=== PATIENT | female | born 1965 | race Caucasian/White ===

== ENCOUNTER → 2017-04-28 | Outpatient (CLI) | payer OTHER ==
[~2017-04-28] MED LIST: CPR250T PO; CYCL10TA9 PO; NAPR-243 PO
--- NOTE | 2017-04-28 12:29 | Diagnostic Imaging Report ---
INDICATION: Digital mammogram bilateral screening. This study was compared to the prior exams of 09/06/15 and 06/08/12. At this time, there are no current complaints. The current study was also evaluated with a Computer Aided Detection (CAD) system. FINDINGS: The fibroglandular tissue in both breasts is heterogeneously dense. This does limit the sensitivity of this exam. Overall, there does not appear to have been any significant change when compared to the prior study. No primary or secondary sign of malignancy is noted. IMPRESSION: There is no radiographic evidence for malignancy. ACR BI-RADS Category 1: Negative. Result letter will be mailed to the patient. Note: At least 10% of breast cancer is not imaged by mammography. Dictated by: Dictated on workstation # [id number]
== END ==
LOC: RAD 07:16
PROVIDERS: ATTEND Internal Medicine
DX: Z12.31 Encounter for screening mammogram for malignant neoplasm of breast (principal)
CPT/HCPCS: 77067

== ENCOUNTER 2017-09-22 09:19 | Emergency (ER) | payer OTHER ==
[~2017-09-22] VITALS: Ht 167.6 cm; Wt 99.8 kg
--- OUTSIDE RECORDS SUMMARY | 2017-09-22 09:25 | XMS REPORT | Clinical Summary ---
Author Author User, [employer] Lindsay Robison DO, LUCRETIAP Address Unknown Phone Allergies, Adverse Reactions, Alerts Allergy Name Reaction Description Start Date Severity Status Provider No Known Allergies Greta Main Conditions or Problems Problem Name Problem Code Onset Date Status Entry Date Provider Comment Standard Description Annotate UTI 599.0 Resolved Lindsay Robison Urinary tract infection, site not specified HEALTH SCREENING V70.0 Resolved Lindsay Robison Routine general medical examination at a health care facility SPLENECTOMY, TOTAL, HX OF V45.79 Resolved Lindsay Robison Other acquired absence of organ MAMMOGRAM, ABNORMAL, RIGHT 793.80 Resolved Lindsay Robison Abnormal mammogram, unspecified VACCINE AGAINST STREPTOCOCCUS PNEUMONIAE V03.82 Resolved Lindsay Robison Need for prophylactic vaccination against Streptococcus pneumoniae [pneumococcus] WELL WOMAN V70.0 Active Lindsay Robison Routine general medical examination at a health care facility DEHYDRATION 276.51 Resolved Lindsay Robison Dehydration INFLUENZA WITH OTHER MANIFESTATIONS 487.8 Resolved Lindsay Robison Influenza with other manifestations OTHER ELEVATED WHITE BLOOD CELL COUNT 288.69 Resolved Lindsay Robison Other elevated white blood cell count Medication List Medication Instructions Start Date Stop Date Generic Name NDC Status Provider Patient Instruction BACTRIM DS 800-160 MG TABS 1 po daily x 5 days SULFAMETHOXAZOLE-TRIMETHOPRIM [id number] No Longer Active Lindsay Robison Immunizations Vaccine Administration Date Value Standard Description pneumococcal immunization administered 1st dose Dr. Robison pneumococcal polysaccharide vaccine, 23 valent Vital Signs Date Name Value Unit Range Description blood pressure, diastolic - 8462-4 70 mm[Hg] BP lopez blood pressure, systolic - 8480-6 118 mm[Hg] BP sys pulse rate E&M - 8867-4 68 /min Heart rate respiratory rate E&M - 9279-1 14 /min Resp rate temperature E&M 98.6 [degF] Body temperature weight E&M - 3141-9 180 [lb_av] Weight Measured Diagnostic Results Date Name Value Unit Range Description Office Visit: Dr Robison'mark Check Up: Established Patient Visit - Chemistry glucose, plasma fasting 79 mg/dL triglyceride, serum, fasting 54 mg/dL cholesterol, serum 158 mg/dL hemoglobin A1C, blood, as % of total hemoglobin 4.1 % HDL cholesterol, serum 59 mg/dL LDL cholesterol, serum 88 mg/dL Encounters Code Encounter Date Provider Facility CPT-24396 Ofc Vst, Est Level III 14:30:37 EARLY CHILDHOOD ASSISTANT Lindsay Robison DO, FACP CPT-41677 Ofc Vst, Est Level III 20:03:25 EARLY CHILDHOOD ASSISTANT Lindsay Robison DO, FACP CPT-20501 Ofc Vst, Est Level IV 15:45:18 EARLY CHILDHOOD ASSISTANT Lindsay Robison [facility] CPT-78287 Ofc Vst, New Level III 15:22:14 EARLY CHILDHOOD ASSISTANT Lindsay Robison DO, FACP Procedures Code Procedure Name Date Entry Date Standard Description CPT-07399 Preventive, Est, (40-64) 17:03:39 CDT CPT-95365 Administration of 1st dose vaccine 10:25:53 EARLY CHILDHOOD ASSISTANT CPT-03592 Injection, Pneumovax 10:25:53 EARLY CHILDHOOD ASSISTANT CPT-71039 Preventive, Est, (40-64) 10:25:53 EARLY CHILDHOOD ASSISTANT CPT-72212 Handling of specimen from office to lab 10:25:53 EARLY CHILDHOOD ASSISTANT
--- OUTSIDE RECORDS SUMMARY | 2017-09-22 09:25 | XMS REPORT | Continuity of Care Document ---
Author Author [facility] Organization [facility] Address Unknown Phone Unavailable Allergies Active Description Code Type Severity Reaction Onset Reported/Identified Relationship to Patient Clinical Status Yes No Known Drug Allergies [id number] Drug Allergy Unknown N/A 05/18/2012 Medications There is no data. Problems Date Dx Coded Attending Type Code Diagnosis Diagnosed By 10/31/2010 Ot 599.0 URIN TRACT INFECTION NOS 10/31/2010 Ot 724.2 LUMBAGO 10/31/2010 Ot 780.79 OTH MALAISE FATIGUE 11/02/2010 Ot 041.11 METHICILLIN SUSCEPTIBLE STAPHYLOCOCCUS A 11/02/2010 Ot 599.0 URIN TRACT INFECTION NOS 11/02/2010 Ot 724.2 LUMBAGO 05/20/2012 Ot 038.9 SEPTICEMIA NOS 05/20/2012 Ot 079.99 VIRAL INFECTION NOS 05/20/2012 Ot 276.51 DEHYDRATION 05/20/2012 Ot 599.0 URIN TRACT INFECTION NOS 05/20/2012 Ot 785.6 ENLARGEMENT LYMPH NODES 05/20/2012 Ot 995.91 SEPSIS 09/06/2015 Ot 611.72 LUMP OR MASS IN BREAST 09/06/2015 Ot V76.12 OTH SCREEN MAMMO-MALIGN NEOPLASM OF MANAV 09/06/2015 Ot 793.80 UNSPEC ABNORMAL MAMMOGRAM 09/06/2015 Ot V76.12 OTH SCREEN MAMMO-MALIGN NEOPLASM OF MANAV 09/07/2015 TRA ALLEN DO Ot Z12.31 ENCNTR SCREEN MAMMOGRAM FOR MALIGNANT NE 04/28/2017 Ot V76.12 OTH SCREEN MAMMO-MALIGN NEOPLASM OF MANAV 04/28/2017 TRA ALLEN DO Ot Z12.31 ENCNTR SCREEN MAMMOGRAM FOR MALIGNANT NE Procedures There is no data. Results There is no data. Encounters ACCT No. Visit Date/Time Discharge Status Pt. Type Provider Facility Loc./Unit Complaint [id number] 04/28/2017 07:16:00 04/28/2017 23:59:59 CLS Outpatient ALLEN DO, TRA [facility] RAD Z12.31 SCREENING [id number] 11/21/2016 07:42:00 11/21/2016 23:59:59 CLS Preadmit ALLEN DO, TRA [facility] RAD Z12.31 [id number] 09/06/2015 09:32:00 09/06/2015 23:59:59 CLS Outpatient ALLEN DO, TRA [facility] RAD SCREENING [id number] 06/08/2012 09:48:00 Document Registration [id number] 05/18/2012 15:47:00 Document Registration [id number] 11/02/2010 18:58:00 Document Registration [id number] 10/31/2010 15:31:00 Document Registration [id number] 05/13/2010 14:18:00 Document Registration [id number] 05/02/2010 08:20:00 Document Registration
[2017-09-22] MEDS ORDERED: LEVO75TA PO (09:41)
[2017-09-22 09:47] LABS: BILIRUBIN,URINE NEGATIVE (NEGATIVE); CLARITY,URINE SLIGHTLY CLOUDY; COLOR,URINE AMBER; GLUCOSE, URINE (UA) NEGATIVE (NEGATIVE); KETONES,URINE NEGATIVE (NEGATIVE); LEUKOCYTE ESTERASE ,URINE 2+ (NEGATIVE); NITRITE,URINE NEGATIVE (NEGATIVE); PH,URINE 5 (5-9); PROTEIN,URINE 2+ (NEGATIVE); UROBILINOGEN,URINE 1 MG/DL (NORMAL)
[2017-09-22 09:54] LABS: BACTERIA,URINE MODERATE /HPF; RBC,URINE RARE /HPF
[2017-09-22] MEDS ORDERED: CEPH-507 PO (10:08)
--- NOTE | 2017-09-22 10:08 | ED General ---
General Chief Complaint: -Female Stated Complaint: BACK PAIN,NO PAINFUL URINATION Nursing Triage Note: PT AMBULATES TO ROOM 6 PT STATES HAS LOW BACK PAIN, PT STATES USUALLY WHEN HAS THIS IS UTI, PT STATES JUST DOES NOT FEEL WELL. STATES HAS NOT BEEN DRINKING WELL PAST FEW DAYS Nursing Sepsis Screen: No Definite Risk (MC CROWDER MD) Source of Information: Patient Exam Limitations: No Limitations (VERN TORRES) History of Present Illness Date Seen by Provider: Sep 22, 2017 Time Seen by Provider: 09:55 Initial Comments This is a 52 y/o female presenting to the ED via private vehicle. Chief complaint is low back pain that began on 09/18/17. Patient reports that her pain started with intermittent pains, but now reports it as a constant ache. She denies any radiation. Current pain is 6/10, with max pain felt 10/10 on Thursday. Patient states that she has not taken any medications for the pain, warm bathes/showers seem to ease the pain temporarily. Patient has a history of multiple UTIs, denies history of kidney stones, back problems. She states that she usually has back pain with urinary track infections. Admits to chills, loss of appetite; Denies fever nausea, vomiting, diarrhea, abdominal pain, frequency , urgency, burning with urination, odor to urine, blood in urine. Denies in medication allergies. Patient reports taking Synthroid, for hypothyroidism. Patient reports her LMP was 3 years ago. (VERN TORRES) Allergies and Home Medications Allergies Coded Allergies: No Known Drug Allergies (Unverified , 05/18/12) Home Medications Cephalexin 500 Mg Capsule, 500 MG PO QID Prescribed by: MC BARRETT on 09/22/17 1008 Patient Home Medication List Home Medication List Reviewed: Yes (VERN TORRES) Review of Systems Constitutional: see HPI, chills; No fever EENTM: no symptoms reported Respiratory: no symptoms reported Cardiovascular: no symptoms reported Gastrointestinal: see HPI; No abdominal pain, No diarrhea; loss of appetite; No nausea, No vomiting Genitourinary: see HPI : No Musculoskeletal: back pain Skin: no symptoms reported (VERN TORRES) Past Nbkhayk-Udxqzp-Svxbfi Hx Patient Social History Alcohol Use: Denies Use Recreational Drug Use: No Smoking Status: Never a Smoker Recent Foreign Travel: No Contact w/Someone Who Travel: No Recent Infectious Disease Expo: No Recent Hopitalizations: No Physical Abuse: No Sexual Abuse: No (MC CROWDER MD) Immunizations Up To Date Tetanus Booster (TDap): Unknown Date of Influenza Vaccine: Feb 12, 2012 (MC CROWDER MD) Past Medical History Surgeries: Yes (SPLEENECTOMY-AGE 1) Gallbladder Respiratory: No Cardiac: No Reproductive Disorders: No 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 Gastrointestinal: No Musculoskeletal: No Endocrine: Yes Hypothyroidsim Cancer: No Psychosocial: No Nursing Suicide Risk Score: 0 Integumentary: No Blood Disorders: No Adverse Reaction/Blood Tranf: No (MC CROWDER MD) Physical Exam Vital Signs Vital Signs - First Documented 09/22/17 09:20 Temp 96.9 Pulse 101 Resp 16 B/P (MAP) 130/82 (98) Pulse Ox 98 (VERN TORRES MED STUDENT) Vital Signs Capillary Refill : Less Than 3 Seconds (MC CROWDER MD) General Appearance: No Apparent Distress, WD/WN Eyes: Bilateral Eye Normal Inspection, Bilateral Eye EOMI Respiratory: Chest Non Tender, Lungs Clear, Normal Breath Sounds, No Accessory Muscle Use, No Respiratory Distress Cardiovascular: Regular Rate, Rhythm, No Edema, No Gallop, No JVD, No Murmur Gastrointestinal: Normal Bowel Sounds, No Organomegaly, No Pulsatile Mass, Non Tender (Non tender to abdomen including suprapubic area ), Soft Back: Normal Inspection, No CVA Tenderness, No Vertebral Tenderness Neurologic/Psychiatric: Alert, Oriented x3, No Motor/Sensory Deficits, Normal Mood/Affect Skin: Normal Color, Warm/Dry (VERN TORRES MED STUDENT) Progress/Results/Core Measures Suspected Sepsis Recent Fever Within 48 Hours: No Infection Criteria Present: None New/Unexplained Altered Menta: No Sepsis Screen: No Definite Risk SIRS Temperature:96.9 Pulse: 101 Respiratory Rate: 16 Blood Pressure 130 /82 Mean: 98 (MC CROWDER MD) Results/Orders Lab Results Laboratory Tests Test 09/22/17 09:25 Range/Units Urine Color GORAN H Urine Clarity SLIGHTLY CLOUDY Urine pH 5 5-9 Urine Specific [place] 1.015 L 1.016-1.022 Urine Protein 2+ H NEGATIVE Urine Glucose (UA) NEGATIVE NEGATIVE Urine Ketones NEGATIVE NEGATIVE Urine Nitrite NEGATIVE NEGATIVE Urine Bilirubin NEGATIVE NEGATIVE Urine Urobilinogen 1 NORMAL MG/DL Urine Leukocyte Esterase 2+ H NEGATIVE Urine RBC (Auto) 2+ H NEGATIVE Urine RBC RARE /HPF Urine WBC 5-10 H /HPF Urine Squamous Epithelial Cells 10-25 H /HPF Urine Crystals NONE /LPF Urine Bacteria MODERATE H /HPF Urine Casts NONE /LPF Urine Mucus SMALL H /LPF Urine Culture Indicated YES (VERN TORRES) Vital Signs/I&O 09/22/17 09:20 Temp 96.9 Pulse 101 Resp 16 B/P (MAP) 130/82 (98) Pulse Ox 98 (VERN TORRES) Vital Signs/I&O Capillary Refill : Less Than 3 Seconds (MC CROWDER MD) Blood Pressure Mean: 98 Progress Note : Progress Note I have personally interviewed, seen, and examined this patient along with Vern Torres, QUINTIN Student. I have reviewed her documentation and agree with her history, exam, assessment, and plan with the following additions. Patient states history of prior urinary tract infection with similar symptoms. UA was suggestive of urinary tract infection and patient was started on antibiotic therapy. See discharge instructions. Exam: Gen.: Alert, oriented, no acute distress, well-developed HEENT: Normocephalic and atraumatic, mucous membranes moist Heart: Regular rate and rhythm without murmur Lungs: Clear to auscultation bilaterally with normal effort Abdomen: Soft, nontender Back: No point tenderness (MC CROWDER MD) Progress Note : Time: 10:10 Progress Note Patient seen and examined, UA shows moderate UTI. Plan to discharge with Keflex and PRN use of ibuprofen and Tylenol for pain control. (VERN TORRES) Departure Impression Primary Impression: Urinary tract infection Qualified Codes: N39.0 - Urinary tract infection, site not specified Additional Impression: Lower back pain Qualified Codes: M54.5 - Low back pain Disposition: 01 HOME, SELF-CARE Condition: Stable Departure-Patient Inst. Decision time for Depature: 10:05 (MC CROWDER MD) Referrals: ALLEN,TRA DO (PCP/Family) Primary Care Physician Patient Instructions: Urinary Tract Infection, Adult (DC) Add. Discharge Instructions: Drink plenty of clear liquids. You should hydrate well enough that your urine is a clear to light yellow color. Complete your antibiotics as prescribed. Follow-up with your primary care provider by phone or in person on or Thursday to review urine culture results. Return to care if symptoms are worsening. For pain you may take ibuprofen up to 600 mg every 6 hours as needed and/or Tylenol (acetaminophen) up to 1000 mg every 6 hours as needed. All discharge instructions reviewed with patient and/or family. Voiced understanding. Scripts Cephalexin (Keflex) 500 Mg Capsule 500 MG PO QID, #28 CAP Prov: MC CROWDER MD 09/22/17 MC CROWDER MD Sep 22, 2017 10:08 VERN TORRES MED STUDENT Sep 22, 2017 10:18
[2017-09-22 10:15] VITALS: BP 130/82
== END 2017-09-22 10:15 | disposition home or self-care (01) ==
LOC: EDUNIT# 09:19 → ER 09:21
DX: N39.0 Urinary tract infection, site not specified (principal); E03.9 Hypothyroidism, unspecified; Z98.890 Other specified postprocedural states
CPT/HCPCS: 81000; 87088; 99282

== ENCOUNTER → 2017-09-29 | Outpatient (CLI) | payer OTHER ==
[~2017-09-29] MED LIST changes: +CEPH-507 PO; +LEVO75TA PO
--- NOTE | 2017-09-29 16:17 | Diagnostic Imaging Report ---
INDICATION: Low back pain. Three views were obtained. FINDINGS: Alignment, vertebral body heights and disc spaces are within normal limits. There is no spondylolysis or spondylolisthesis. There is no acute fracture or traumatic subluxation. IMPRESSION: No acute radiographic abnormality. Dictated by: Dictated on workstation # [id number]
== END ==
LOC: RAD 15:02
PROVIDERS: ATTEND Internal Medicine
DX: M54.5 Low back pain (principal)
CPT/HCPCS: 72100

== ENCOUNTER 2017-10-08 09:54 | Inpatient (IN) | payer OTHER ==
[~2017-10-08] VITALS: Ht 167.6 cm; Wt 102.7 kg
[2017-10-08] MEDS ORDERED: fentaNYL INJECTION 100 MCG/2 ML AMP IVP STA (11:34)
[2017-10-08] MEDS ORDERED: NS IV 1000 ML 1,000 ML IV STA (11:34)
--- NOTE | 2017-10-08 11:36 | ED Back Pain ---
General Stated Complaint: BACK AND ABD PAIN Source of Information: Patient Exam Limitations: No Limitations History of Present Illness Date Seen by Provider: Oct 08, 2017 Time Seen by Provider: 11:28 Initial Comments Here with back and abdominal pain is been going on for a few days. Seen by her primary care provider for this and had thoracic x-rays done. This did not show significant findings but may have had some abnormality around T8 or T9. Pain is progressed and is intolerable currently. She has nausea and vomiting with this and is unable to keep her medicines down. Denies fever but does have elevated white count. Location: T-Spine Timing/Duration: 3-4 Days Severity: Moderate Pain/Injury Location: Abdomen, Back Modifying Factors: Worse With Movement; Improves With Pain Medication Associated Symptoms: No fever, No weakness, No numbness in legs/feet, No lower back pain, No loss of bladder control, No loss of bowel control Allergies and Home Medications Allergies Coded Allergies: No Known Drug Allergies (Unverified , 05/18/12) Home Medications Cephalexin 500 Mg Capsule, 500 MG PO QID Prescribed by: MC BARRETT on 09/22/17 1008 Patient Home Medication List Home Medication List Reviewed: Yes Constitutional: see HPI; No chills, No fever EENTM: no symptoms reported Respiratory: no symptoms reported Cardiovascular: No chest pain, No edema Gastrointestinal: abdominal pain (upper and lower abdomen in the midline area. Upper abdomen is across) Genitourinary: No dysuria, No frequency Musculoskeletal: back pain; No muscle pain Skin: no symptoms reported Psychiatric/Neurological: No Symptoms Reported All Other Systems Reviewed Negative Unless Noted: Yes Past Onwmcwv-Qmnhjx-Gzrixh Hx Past Med/Social Hx: Reviewed Nursing Past Med/Soc Hx Patient Social History Alcohol Use: Denies Use Recreational Drug Use: No Smoking Status: Never a Smoker Recent Foreign Travel: No Contact w/Someone Who Travel: No Recent Hopitalizations: No Immunizations Up To Date Tetanus Booster (TDap): Unknown Date of Influenza Vaccine: Feb 12, 2012 Past Medical History Surgeries: Yes (SPLEENECTOMY-AGE 1) Gallbladder Respiratory: No Cardiac: No 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 Gastrointestinal: No Musculoskeletal: No Endocrine: Yes Hypothyroidsim Cancer: No Psychosocial: No Integumentary: No Blood Disorders: No Adverse Reaction/Blood Tranf: No Family Medical History Reviewed Nursing Family Hx No Pertinent Family Hx Physical Exam Vital Signs Vital Signs - First Documented 10/08/17 11:28 Temp 98.8 Pulse 96 Resp 22 B/P (MAP) 152/95 (114) Pulse Ox 100 Capillary Refill : General Appearance: No Apparent Distress, WD/WN HEENT: PERRL/EOMI, Pharynx Normal Neck: Non Tender, Supple Cardiovascular: Regular Rate, Rhythm, No Murmur Respiratory: Lungs Clear, Normal Breath Sounds Gastrointestinal: Soft; No Guarding, No Rebound; Tenderness (bilateral upper quadrants) Back: Normal Inspection, No CVA Tenderness, No Vertebral Tenderness Extremity: Normal Range of Motion, Non Tender Neurologic/Psychiatric: Alert, Oriented x3 Skin: Normal Color, Warm/Dry Progress/Results/Core Measures Results/Orders Lab Results Laboratory Tests Test 10/08/17 11:40 10/08/17 11:45 Range/Units White Blood Count 16.0 H 4.3-11.0 10^3/uL Red Blood Count 4.03 L 4.35-5.85 10^6/uL Hemoglobin 11.6 11.5-16.0 G/DL Hematocrit 33 L 35-52 % Mean Corpuscular Volume 81 80-99 FL Mean Corpuscular Hemoglobin 29 25-34 PG Mean Corpuscular Hemoglobin Concent 35 32-36 G/DL Red Cell Distribution Width 13.1 10.0-14.5 % Platelet Count 1019 *H 130-400 10^3/uL Mean Platelet Volume 9.2 7.4-10.4 FL Neutrophils (%) (Auto) 67 42-75 % Lymphocytes (%) (Auto) 21 12-44 % Monocytes (%) (Auto) 12 0-12 % Eosinophils (%) (Auto) 0 0-10 % Basophils (%) (Auto) 0 0-10 % Neutrophils # (Auto) 10.7 H 1.8-7.8 X 10^3 Lymphocytes # (Auto) 3.3 1.0-4.0 X 10^3 Monocytes # (Auto) 1.9 H 0.0-1.0 X 10^3 Eosinophils # (Auto) 0.1 0.0-0.3 10^3/uL Basophils # (Auto) 0.0 0.0-0.1 10^3/uL Neutrophils % (Manual) 69 % Lymphocytes % (Manual) 17 % Monocytes % (Manual) 14 % Eosinophils % (Manual) 0 % Basophils % (Manual) 0 % Band Neutrophils 0 % [place] Bodies SLIGHT Erythrocyte Sedimentation Rate 37 H 0-30 MM/HR Prothrombin Time 14.0 12.2-14.7 SEC INR Comment 1.1 0.8-1.4 Activated Partial Thromboplast Time 34 24-35 SEC Sodium Level 138 135-145 MMOL/L Potassium Level 3.7 3.6-5.0 MMOL/L Chloride Level 102 98-107 MMOL/L Carbon Dioxide Level 25 21-32 MMOL/L Anion Gap 11 5-14 MMOL/L Blood Urea Nitrogen 10 7-18 MG/DL Creatinine 0.66 0.60-1.30 MG/DL Estimat Glomerular Filtration Rate > 60 BUN/Creatinine Ratio 15 Glucose Level 78 70-105 MG/DL Lactic Acid Level 0.94 0.50-2.00 MMOL/L Calcium Level 9.7 8.5-10.1 MG/DL Total Bilirubin 1.3 H 0.1-1.0 MG/DL Aspartate Amino Transf (AST/SGOT) 28 5-34 U/L Alanine Aminotransferase (ALT/SGPT) 29 0-55 U/L Alkaline Phosphatase 89 40-136 U/L C-Reactive Protein High Sensitivity 3.97 H 0.00-0.50 MG/DL Total Protein 7.6 6.4-8.2 GM/DL Albumin 4.0 3.2-4.5 GM/DL Urine Color YELLOW Urine Clarity CLEAR Urine pH 8 5-9 Urine Specific [place] 1.010 L 1.016-1.022 Urine Protein NEGATIVE NEGATIVE Urine Glucose (UA) NEGATIVE NEGATIVE Urine Ketones 2+ H NEGATIVE Urine Nitrite NEGATIVE NEGATIVE Urine Bilirubin NEGATIVE NEGATIVE Urine Urobilinogen NORMAL NORMAL MG/DL Urine Leukocyte Esterase NEGATIVE NEGATIVE Urine RBC (Auto) NEGATIVE NEGATIVE Urine RBC NONE /HPF Urine WBC RARE /HPF Urine Squamous Epithelial Cells RARE /HPF Urine Crystals NONE /LPF Urine Bacteria NEGATIVE /HPF Urine Casts NONE /LPF Urine Mucus NEGATIVE /LPF Urine Culture Indicated NO My Orders Orders - CAMRYN EMERSON MD Cbc With Automated Diff (10/08/17 10:00) Comprehensive Metabolic Panel (10/08/17 10:00) Hs C Reactive Protein (10/08/17 10:00) Erythrocyte Sedimentation Rate (10/08/17 10:00) Saline Lock/Iv-Start (10/08/17 10:00) Mri Thoracic Spine W/Wo Con (10/08/17 10:00) Lactic Acid Analyzer (10/08/17 11:34) Ua Culture If Indicated (10/08/17 11:34) Blood Culture (10/08/17 11:34) Ondansetron Injection (Zofran Injectio (10/08/17 11:45) Ns Iv 1000 Ml (Sodium Chloride 0.9%) (10/08/17 11:34) Saline Lock/Iv-Start (10/08/17 11:34) Fentanyl Injection (Sublimaze Injection (10/08/17 11:34) Manual Differential (10/08/17 11:40) Gadobutrol Inj (Radiology) (Gadavist Inj (10/08/17 12:45) Ct Chest/Abdomen/Pelvis W (10/08/17 12:50) Iohexol Injection (Omnipaque 350 Mg/Ml 1 (10/08/17 13:15) Ns (Ivpb) (Sodium Chloride 0.9%) (10/08/17 13:15) Hydromorphone Injection (Dilaudid Inje (10/08/17 13:26) Saline Lock/Iv-Start (10/08/17 13:26) Ns Iv 1000 Ml (Sodium Chloride 0.9%) (10/08/17 13:26) Hydromorphone Injection (Dilaudid Inje (10/08/17 13:27) Heparin Drip 66776 Unit/500ml (Heparin (10/08/17 14:30) Heparin (Bolus Per Protocol) (Heparin (B (10/08/17 14:30) Protime With Inr (10/08/17 14:30) Partial Thromboplastin Time (10/08/17 14:30) Medications Given in ED Current Medications Medications Dose Ordered Sig/Smooth Route Start Time Stop Time Status Last Admin Dose Admin Gadobutrol 10 mmol ONCE ONCE IV 10/08/17 12:45 10/08/17 12:46 DC 10/08/17 12:37 10 MMOL Iohexol 100 ml ONCE ONCE IV 10/08/17 13:15 10/08/17 13:16 DC 10/08/17 14:01 100 ML Ondansetron HCl 4 mg ONCE ONCE IVP 10/08/17 11:45 10/08/17 11:46 DC 10/08/17 11:40 4 MG Sodium Chloride 250 ml ONCE ONCE IV 10/08/17 13:15 10/08/17 13:16 DC 10/08/17 14:01 80 ML Vital Signs/I&O 10/08/17 11:28 Temp 98.8 Pulse 96 Resp 22 B/P (MAP) 152/95 (114) Pulse Ox 100 Progress Progress Note : Progress Note Seen and evaluated. I did discuss case with Dr. Allen prior to patient's arrival. We will get labs and compared to previous as well as MRI of the thoracic spine due to intractable pain and abnormal findings on thoracic plain film x-ray. Fentanyl 75 g IV. Normal saline 1 L bolus and Zofran 4 mg IV ordered. Monitor patient. MRI complete and noted. No significant findings. We will get CT of chest abdomen pelvis due to concerns related to possible pleural effusion and cancer is a possibility of pain with referred pain. CT chest, abdomen and pelvis ordered. Dilaudid 1 mg IV. Monitor patient. 1430: I rediscussed case with Dr. Alberto and the radiologist after CT results complete. Pain is better. There is abnormalities noted in the liver and portal vein thrombosis is noted with congestion. This may be the cause of pain. Dr. Allen has talked with Dr. Rowley who will consult. She'll admit the patient, inpatient status to the ICU stepdown. Patient to be initiated on heparin protocol. Full dose protocol ordered per her request. Patient agrees to plan. Diagnostic Imaging Diagonstic Imaging: MRI Plain Films/CT/US/NM/MRI: other Comments VIA [facility]. [place], [place] NAME: JULIA [facility]A [facility] REC#: [id number] PT STATUS: REG ER : 1965 PHYSICIAN: CAMRYN EMERSON MD ADMIT DATE: 10/08/17/ER Draft Date of Exam:10/08/17 MRI THORACIC SPINE W/WO CON INDICATION: Back pain for three weeks, progressively getting worse. COMPARISON: No prior MRI studies are available for comparison. FINDINGS: Curvature and alignment of the thoracic spine is normal. The vertebral body heights are maintained. No acute compression fracture is seen. No geographic marrow lesion is seen. There is some mild mid thoracic degenerative disc disease with mild disc space narrowing and desiccation noted. A very small right para midline disc bulge is noted at the T10-T11 level but no resultant central canal or neuroforaminal stenosis is seen. Thoracic spinal cord demonstrates normal homogeneous signal intensity and normal morphology. Postcontrast images are without evidence of abnormal enhancement. Specifically, there are no findings to suggest discitis or vertebral osteomyelitis. No paravertebral fluid collection or abscess is seen. No abnormal enhancement within the spinal canal is detected. Note is made of a trace right pleural effusion. IMPRESSION: 1. Essentially unremarkable pre-and postcontrast MRI of the thoracic spine with the exception of mild mid and lower thoracic degenerative disc disease. No central canal or neuroforaminal stenosis is seen. No acute compression fracture or evidence of discitis/vertebral osteomyelitis are seen. 2. Trace right pleural effusion. Dictated on workstation # [id number] Dict: 10/08/17 1243 Trans: 10/08/17 1302 [facility] [id number] Interpreted by: ANNE DOUGLASS MD Electronically signed by: Reviewed: Discussed w/Radiologist Diagonstic Imaging: Xray, CT Plain Films/CT/US/NM/MRI: chest, abdomen, pelvis Reviewed: Discussed w/Radiologist Departure Impression Primary Impression: Portal vein thrombosis Additional Impression: Intractable abdominal pain Disposition: ADMITTED INPATIENT Condition: Stable Admissions Decision to Admit Reason: Admit from ER (General) Decision to Admit/Date: Oct 08, 2017 Time/Decision to Admit Time: 15:03 Departure-Patient Inst. Referrals: TRA ALLEN DO (PCP/Family) Primary Care Physician CAMRYN EMERSON MD Oct 08, 2017 11:36
[2017-10-08] MEDS ORDERED: ONDANSETRON 4 MG/2 ML (SDV) Z0FRAN IVP ONE (11:45)
[2017-10-08 12:01] LABS: BASOPHILS % (AUTO) 0 % (0-10); EOSINOPHILS # (AUTO) 0.1 10^3/uL (0.0-0.3); EOSINOPHILS % (AUTO) 0 % (0-10); HEMATOCRIT 33 % (35-52); HEMOGLOBIN 11.6 G/DL (11.5-16.0); LYMPHOCYTES # (AUTO) 3.3 X 10^3 (1.0-4.0); LYMPHOCYTES % (AUTO) 21 % (12-44); MEAN CORPUSCULAR HEMOGLOBIN 29 PG (25-34); MEAN CORPUSCULAR HGB CONC 35 G/DL (32-36); MEAN CORPUSCULAR VOLUME 81 FL (80-99); MEAN PLATELET VOLUME 9.2 FL (7.4-10.4); MONOCYTES # (AUTO) 1.9 X 10^3 (0.0-1.0); MONOCYTES % (AUTO) 12 % (0-12); NEUTROPHILS # (AUTO) 10.7 X 10^3 (1.8-7.8); NEUTROPHILS % (AUTO) 67 % (42-75); RED BLOOD COUNT 4.03 10^6/uL (4.35-5.85); RED CELL DISTRIBUTION WIDTH 13.1 % (10.0-14.5)
[2017-10-08 12:02] LABS: PLATELET COUNT 1019 10^3/uL (130-400)
[2017-10-08 12:02] LABS: BILIRUBIN,URINE NEGATIVE (NEGATIVE); CLARITY,URINE CLEAR; COLOR,URINE YELLOW; GLUCOSE, URINE (UA) NEGATIVE (NEGATIVE); KETONES,URINE 2+ (NEGATIVE); LEUKOCYTE ESTERASE ,URINE NEGATIVE (NEGATIVE); NITRITE,URINE NEGATIVE (NEGATIVE); PH,URINE 8 (5-9); PROTEIN,URINE NEGATIVE (NEGATIVE); UROBILINOGEN,URINE NORMAL (NORMAL)
[2017-10-08 12:14] LABS: BACTERIA,URINE NEGATIVE /HPF; SQUAMOUS EPITHELIAL CELL,UR RARE /HPF; WBC,URINE RARE /HPF
[2017-10-08 12:27] LABS: ERYTHROCYTE SEDIMENTATION RATE 37 MM/HR (0-30)
[2017-10-08 12:32] LABS: ALANINE AMINOTRANSFERASE 29 U/L (0-55); ALKALINE PHOSPHATASE 89 U/L (40-136); BILIRUBIN,TOTAL 1.3 MG/DL (0.1-1.0); BUN/CREATININE RATIO 15; CALCIUM 9.7 MG/DL (8.5-10.1); CARBON DIOXIDE 25 MMOL/L (21-32); CHLORIDE 102 MMOL/L (98-107); CREATININE SERUM 0.66 MG/DL (0.60-1.30); GFR ESTIMATED > 60; GLUCOSE 78 MG/DL (70-105); POTASSIUM 3.7 MMOL/L (3.6-5.0); SODIUM 138 MMOL/L (135-145); TOTAL PROTEIN 7.6 GM/DL (6.4-8.2)
[2017-10-08 12:33] LABS: BAND NEUTROPHILS 0 %; BASOPHILS % (MANUAL) 0 %; EOSINOPHILS % (MANUAL) 0 %; HOWELL-JOLLY BODIES SLIGHT; LYMPHOCYTES % (MANUAL) 17 %; MONOCYTES % (MANUAL) 14 %; NEUTROPHILS % (MANUAL) 69 %
[2017-10-08] MEDS ORDERED: GADOBUTROL 10 MMOL/10 ML (GADAVIST) VIAL IV ONE (12:45)
--- NOTE | 2017-10-08 13:02 | Diagnostic Imaging Report ---
INDICATION: Back pain for three weeks, progressively getting worse. COMPARISON: No prior MRI studies are available for comparison. FINDINGS: Curvature and alignment of the thoracic spine is normal. The vertebral body heights are maintained. No acute compression fracture is seen. No geographic marrow lesion is seen. There is some mild mid thoracic degenerative disc disease with mild disc space narrowing and desiccation noted. A very small right para midline disc bulge is noted at the T10-T11 level but no resultant central canal or neuroforaminal stenosis is seen. Thoracic spinal cord demonstrates normal homogeneous signal intensity and normal morphology. Postcontrast images are without evidence of abnormal enhancement. Specifically, there are no findings to suggest discitis or vertebral osteomyelitis. No paravertebral fluid collection or abscess is seen. No abnormal enhancement within the spinal canal is detected. Note is made of a trace right pleural effusion. IMPRESSION: 1. Essentially unremarkable pre-and postcontrast MRI of the thoracic spine with the exception of mild mid and lower thoracic degenerative disc disease. No central canal or neuroforaminal stenosis is seen. No acute compression fracture or evidence of discitis/vertebral osteomyelitis are seen. 2. Trace right pleural effusion. Dictated by: Dictated on workstation # [id number]
[2017-10-08] MEDS ORDERED: IOHEXOL 350 MG/ML 100 ML (OMNIPAQUE 350) VIAL IV ONE (13:15)
[2017-10-08] MEDS ORDERED: NS 250 ML (IVPB) BAG IV ONE (13:15)
[2017-10-08] MEDS ORDERED: HYDROmorphone 1 MG/ML (DILAUDID) 1 ML SYRINGE IV STA ×2 (13:26→15:42)
[2017-10-08] MEDS ORDERED: NS IV 1000 ML 1,000 ML IV ONE (13:26)
[2017-10-08] MEDS ORDERED: HYDROmorphone 1 MG/ML (DILAUDID) 1 ML SYRINGE ONE ×2 (13:27→15:43)
[2017-10-08] MEDS ORDERED: HEParin DRIP 25000 UNIT/500ML 500 ML IV ONE (14:30)
[2017-10-08] MEDS ORDERED: HEParin 1000 UNIT/ML (10ML VIAL) FOR BOLUS IV ONE ×2 (14:30→20:00)
--- NOTE | 2017-10-08 14:41 | Diagnostic Imaging Report ---
PROCEDURE: CT chest, abdomen, and pelvis with contrast. TECHNIQUE: Multiple contiguous axial images were obtained through the chest, abdomen, and pelvis after the administration of intravenous contrast. INDICATION: Upper back pain, abdominal pain, as well as vomiting. CT CHEST: No axillary lymphadenopathy is detected. No definite hilar or mediastinal lymphadenopathy is seen. No pericardial fluid is detected. There is trace right-sided pleural fluid. No left-sided pleural effusion is identified. There is minimal subsegmental atelectasis in the right middle lobe and lingula as well as bilateral lower lobes. No parenchymal mass or nodule is seen. IMPRESSION: Trace right pleural effusion with mild bibasilar subsegmental atelectasis. No other significant abnormality is seen. CT ABDOMEN AND PELVIS: Imaging through the liver does show findings consistent with portal vein thrombosis. Low density throughout the portal vein is present. There is also low density throughout the superior mesenteric vein. There appears to be collateral vessels surrounding the portal vein consistent with cavernous transformation. There is heterogeneity to the liver parenchyma with a moderate amount of low-density centrally. This is most likely secondary to perfusion phenomenon due to portal vein thrombosis. The liver becomes isodense on the delayed images. A discrete liver mass is not identified. No biliary ductal dilatation is seen. No discrete pancreatic mass is identified. The spleen is surgically absent. No adrenal mass is identified. Kidneys demonstrate a tiny nonobstructing calculus in the lower pole left kidney. The aorta is nonaneurysmal. The small and large bowel loops are normal caliber. No definite secondary findings of mesenteric ischemia are seen such as wall thickening or pneumatosis. There does appear to be some congestion in the mesenteric fat. No free fluid in the abdomen is seen. There is some free fluid in the dependent portions of the pelvis. The bladder is decompressed. There is no free air. 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 This may be chronic, as there is cavernous transformation of the portal vein, however, there does appear to be a moderate amount of mesenteric congestion and acuity of the SMV thrombosis is indeterminate. No discrete liver mass is identified. No secondary signs of mesenteric ischemia are detected. Moderate free fluid is present. While no discrete liver mass is identified, further evaluation with MRI liver protocol could be performed to exclude a liver mass. Results were discussed with Dr. Robison prior to this dictation. Dictated by: Dictated on workstation # [id number]
[2017-10-08 14:44] LABS: INR 1.1 (0.8-1.4)
[2017-10-08 16:05] VITALS: BP 133/81
[2017-10-08] MEDS ORDERED: CATHETER FLUSH 10 ML SYR IV PRN (16:15)
[2017-10-08] MEDS ORDERED: HYDR-3812 PO (16:18)
[2017-10-08] MEDS ORDERED: LEVO50TA6 PO (16:18)
[2017-10-08] MEDS ORDERED: CYCL10TA9 PO (16:23)
[2017-10-08] MEDS ORDERED: CRAN250C2 PO (16:23)
[2017-10-08] MEDS: NS IV 1000 ML 1,000 ML IV SCH (16:59)
[2017-10-08] MEDS ORDERED: HEParin 1000 UNIT/ML (10ML VIAL) FOR BOLUS IV SCH (17:30)
--- NOTE | 2017-10-08 18:06 | History & Physical-Hospitalist ---
History of Present Illness HPI/Chief Complaint CC: Severe abdominal/back pain HPI: This is a 52-year-old white female clinic patient of mine with a past medical history of hypothyroidism and splenectomy at age 21 years old due to spherocytosis who presented to the ER after incapacitating back and abdominal pain. It is to note 2 weeks ago she presented to the ER with lower back pain diagnosed with UTI for which she has had before but the pain worsened I followed up on urine culture it appeared to be normal malcom so antibiotic was discontinued and patient was treated for lower back muscle skeletal pain. Lumbar spine x-ray was obtained where she was having pain showing no significant abnormality. I saw her again this past Thursday due to severe back pain that was unrelenting and terrible insomnia due to the pain so noted that the back pain had risen to her bra line level of T9 so thoracic x-ray was obtained showing localized degeneration of T8-T9 which gave rise to my suspicion of thoracic spine abscess versus compression fracture versus metastasis. When she went to the ER I was in the process of getting an MRI approved. 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 This was thought to be acute due to the severity of her abdominal pain and I did speak with Dr. Rowley hematology after Dr. Jiang radiology and Dr. Nance ER physician and we discussed the case finding the patient need of hospitalization for pain control and heparin protocol and Dr. Breezy Shrestha has graciously agreed to see the patient in consultation. Will obtain an MRI of the liver to evaluate for liver mass of neoplastic origin. Source: patient Date Seen 10/08/17 Time Seen by Provider: 17:30 Attending Physician Lindsay Allen DO PCP Lindsay Allen DO Referring Physician Date of Admission Oct 08, 2017 at 15:38 Home Medications & Allergies Home Medications Reviewed patient Home Medication Reconciliation performed by pharmacy medication reconciliations microwave radio technician and/or nursing. Patients Allergies have been reviewed. Allergies Allergies Coded Allergies No Known Drug Allergies (Unverified05/18/12) Past Fkagzez-Sknvon-Yrlfyh Hx Past Med/Social Hx: Reviewed Nursing Past Med/Soc Hx, Reviewed and Corrections made Patient Social History Marrital Status: Employed/Student: employed ([employer]) Alcohol Use: Denies Use Recreational Drug Use: No Smoking Status: Never a Smoker Type Used: Cigarettes 2nd Hand Smoke Exposure: No Physical Abuse Screen: No Sexual Abuse: No Recent Foreign Travel: No Contact w/other who traveled: No Recent Hopitalizations: No Recent Infectious Disease Expo: No Immunizations Up To Date Tetanus Booster (TDap): Unknown Date of Influenza Vaccine: Feb 12, 2012 Past Medical History Surgeries: Gallbladder Reproductive: No Menopausal Endocrine: Hypothyroidsim History of Blood Disorders: No Adverse Reaction to Blood [place]: No Family History Reviewed Nursing Family Hx No Pertinent Family Hx Review of Systems Constitutional: see HPI, dizziness, malaise EENTM: no symptoms reported Respiratory: no symptoms reported Cardiovascular: no symptoms reported Gastrointestinal: abdominal pain (LUQ), loss of appetite, nausea, vomiting Genitourinary: no symptoms reported Musculoskeletal: back pain Skin: no symptoms reported Psychiatric/Neurological: Anxiety All Other Systems Reviewed Negative Unless Noted: Yes Physical Exam Physical Exam Vital Signs Vital Signs - First Documented 10/08/17 10/08/17 11:28 16:05 Temp 98.8 Pulse 96 Resp 22 B/P (MAP) 152/95 (114) Pulse Ox 100 O2 Delivery Room Air Capillary Refill : Less Than 3 Seconds General Appearance: WD/WN, Moderate Distress Eyes: Bilateral Eye Normal Inspection, Bilateral Eye PERRL HEENT: PERRL/EOMI, Normal ENT Inspection, Pharynx Normal Neck: Full Range of Motion, Normal Inspection, Non Tender, Supple, Carotid Bruit Respiratory: Chest Non Tender, Lungs Clear, Normal Breath Sounds, No Accessory Muscle Use, No Respiratory Distress Cardiovascular: Regular Rate, Rhythm, No Edema, No Gallop, No JVD, No Murmur, Normal Peripheral Pulses Gastrointestinal: Normal Bowel Sounds, No Organomegaly, No Pulsatile Mass, Soft , Abnormal Bowel Sounds, Tenderness Back: Normal Inspection, No CVA Tenderness, No Vertebral Tenderness Extremity: Normal Capillary Refill, Normal Inspection, Normal Range of Motion, Non Tender, No Calf Tenderness, No Pedal Edema Neurologic/Psychiatric: Alert, Oriented x3, No Motor/Sensory Deficits, Normal Mood/Affect Skin: Normal Color, Warm/Dry Lymphatic: No Adenopathy Results Results/Procedures Labs Laboratory Tests 10/08/17 11:40 Patient resulted labs reviewed. Assessment/Plan Admission Diagnosis Acute and extensive portal vein and superior mesenteric thrombosis Admission Status: Inpatient Order (span 2 midnights) Reason for Inpatient Admission: IV Heparin and evaluate source of extensive portal vein thrombosis Assessment and Plan Hepatin drip Hematology consultation Pain control Check MRI liver for mass and neoplastic source Diagnosis/Problems Diagnosis/Problems (1) Portal vein thrombosis Status: Acute Assessment & Plan: Heparin drip and stepdown status to monitor closely and consult hematology Dr. 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 (3) H/O splenectomy Status: Chronic Assessment & Plan: Performed 1 years old due to spherocytosis (4) Leukocytosis Status: Acute Qualifiers: Leukocytosis type: leukemoid reaction Qualified Codes: D72.823 - Leukemoid reaction (5) Thrombocytosis Status: Chronic Assessment & Plan: Usual platelet count 550 but today 1019 (6) Hypothyroidism Status: Chronic Assessment & Plan: Restart home med Qualifiers: Hypothyroidism type: acquired Qualified Codes: E03.9 - Hypothyroidism, unspecified (7) Intractable abdominal pain Status: Acute Assessment & Plan: Dilaudid for pain control Clinical Quality Measures DVT/VTE Risk/Contraindication: Risk Factor Score Per Nursin RFS Level Per Nursing on Admit: 1=Low/No VTE PPX LINDSAY ALLEN DO Oct 08, 2017 18:06
[2017-10-08] MEDS: HYDROmorphone 1 MG/ML (DILAUDID) 1 ML SYRINGE IV PRN ×2 (19:18→22:16)
[2017-10-08 19:22] VITALS: BP 137/81
[2017-10-08] MEDS ORDERED: DOCUSATE SODIUM 100 MG (COLACE) CAP PO PRN (21:30)
[2017-10-08] MEDS ORDERED: POLYETHYLENE GLYCOL 17 GM (MIRALAX) PACK PO PRN (21:30)
[2017-10-08] MEDS ORDERED: ALPRAZolam 0.25 MG (XANAX) TAB PO PRN (21:30)
[2017-10-08 23:56] VITALS: BP 120/69
[2017-10-09] MEDS: HYDROmorphone 1 MG/ML (DILAUDID) 1 ML SYRINGE IV PRN ×7 (02:05→20:43)
[2017-10-09] MEDS: ONDANSETRON 4 MG/2 ML (SDV) Z0FRAN IV PRN ×3 (02:05→17:23)
[2017-10-09 02:42] LABS: BASOPHILS # (AUTO) 0.1 10^3/uL (0.0-0.1); BASOPHILS % (AUTO) 0 % (0-10); EOSINOPHILS # (AUTO) 0.2 10^3/uL (0.0-0.3); EOSINOPHILS % (AUTO) 1 % (0-10); HEMATOCRIT 35 % (35-52); LYMPHOCYTES # (AUTO) 4.2 X 10^3 (1.0-4.0); LYMPHOCYTES % (AUTO) 23 % (12-44); MEAN CORPUSCULAR HEMOGLOBIN 28 PG (25-34); MEAN CORPUSCULAR HGB CONC 35 G/DL (32-36); MEAN CORPUSCULAR VOLUME 81 FL (80-99); MEAN PLATELET VOLUME 9.5 FL (7.4-10.4); MONOCYTES # (AUTO) 2.4 X 10^3 (0.0-1.0); MONOCYTES % (AUTO) 13 % (0-12); NEUTROPHILS # (AUTO) 11.3 X 10^3 (1.8-7.8); NEUTROPHILS % (AUTO) 62 % (42-75); PLATELET COUNT 626 10^3/uL (130-400); RED BLOOD COUNT 4.24 10^6/uL (4.35-5.85); RED CELL DISTRIBUTION WIDTH 13.6 % (10.0-14.5); WHITE BLOOD COUNT 18.2 10^3/uL (4.3-11.0)
[2017-10-09 02:58] LABS: ALANINE AMINOTRANSFERASE 25 U/L (0-55); ALBUMIN 3.2 GM/DL (3.2-4.5); ALKALINE PHOSPHATASE 85 U/L (40-136); BILIRUBIN,TOTAL 0.8 MG/DL (0.1-1.0); BUN/CREATININE RATIO 15; CALCIUM 8.5 MG/DL (8.5-10.1); CARBON DIOXIDE 20 MMOL/L (21-32); CHLORIDE 104 MMOL/L (98-107); CREATININE SERUM 0.61 MG/DL (0.60-1.30); GFR ESTIMATED > 60; GLUCOSE 81 MG/DL (70-105); POTASSIUM 3.7 MMOL/L (3.6-5.0); SODIUM 136 MMOL/L (135-145); TOTAL PROTEIN 6.3 GM/DL (6.4-8.2)
[2017-10-09 03:08] LABS: LYMPHOCYTES % (MANUAL) 22 %; MONOCYTES % (MANUAL) 11 %; NEUTROPHILS % (MANUAL) 67 %; RBC MORPH NORMAL
[2017-10-09 04:00] VITALS: BP 135/74
[2017-10-09] MEDS: ACETAMINOPHEN 500 MG TAB (TYLENOL) PO PRN (05:16)
[2017-10-09] MEDS: NS IV 1000 ML 1,000 ML IV SCH ×2 (05:43→19:47)
[2017-10-09] MEDS: HEParin DRIP 25000 UNIT/500ML 500 ML IV SCH ×2 (05:46→19:44)
[2017-10-09 07:59] VITALS: BP 138/77
--- NOTE | 2017-10-09 10:32 | Progress Note-Hospitalist ---
Subjective HPI/CC On Admission Date Seen by Provider: Oct 09, 2017 Time Seen by Provider: 10:30 CC: Severe abdominal/back pain HPI: This is a 52-year-old white female clinic patient of mine with a past medical history of hypothyroidism and splenectomy at age 21 years old due to spherocytosis who presented to the ER after incapacitating back and abdominal pain. It is to note 2 weeks ago she presented to the ER with lower back pain diagnosed with UTI for which she has had before but the pain worsened I followed up on urine culture it appeared to be normal malcom so antibiotic was discontinued and patient was treated for lower back muscle skeletal pain. Lumbar spine x-ray was obtained where she was having pain showing no significant abnormality. I saw her again this past Thursday due to severe back pain that was unrelenting and terrible insomnia due to the pain so noted that the back pain had risen to her bra line level of T9 so thoracic x-ray was obtained showing localized degeneration of T8-T9 which gave rise to my suspicion of thoracic spine abscess versus compression fracture versus metastasis. When she went to the ER I was in the process of getting an MRI approved. 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 This was thought to be acute due to the severity of her abdominal pain and I did speak with Dr. Rowley hematology after Dr. Jiang radiology and Dr. Nance ER physician and we discussed the case finding the patient need of hospitalization for pain control and heparin protocol and Dr. Breezy Shrestha has graciously agreed to see the patient in consultation. Will obtain an MRI of the liver to evaluate for liver mass of neoplastic origin. Subjective/Events-last exam Patient still having a great deal of abdominal pain Dilaudid as tolerated well Maintain on IV fluids Spoke with Dr. Rowley after he graciously provided consultation on mesenteric and portal vein thrombosis Heparin drip will be maintained to lessen the clot burden that will help with the pain We'll address change clerk to oral anticoagulation tomorrow Fever continues and considering she is a splenectomy patient will empirically place on Zosyn Review of Systems General: Fatigue, Malaise Gastrointestinal: Abdominal Pain, Constipation Focused Exam Lactate Level 10/08/17 11:40: Lactic Acid Level 0.94 Objective Exam Vital Signs Vital Signs Date Time Temp Pulse Resp B/P (MAP) Pulse Ox O2 Delivery O2 Flow Rate FiO2 10/10/17 08:00 71 130/76 (94) 97 Nasal Cannula 2.00 10/10/17 06:24 98.6 16 Capillary Refill : Less Than 3 Seconds General Appearance: WD/WN, Chronically ill, Obese Respiratory: Chest Non Tender, Lungs Clear, Normal Breath Sounds, No Accessory Muscle Use, No Respiratory Distress Cardiovascular: Regular Rate, Rhythm, No Edema, No Gallop, No JVD, No Murmur, Normal Peripheral Pulses Gastrointestinal: Tenderness (generalized) Neurologic/Psychiatric: Alert, Oriented x3, No Motor/Sensory Deficits, Normal Mood/Affect Results/Procedures Lab Laboratory Tests 10/10/17 01:55 Patient resulted labs reviewed. 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 (3) H/O splenectomy Status: Chronic Assessment & Plan: Performed 1 years old due to spherocytosis (4) Leukocytosis Status: Acute Qualifiers: Leukocytosis type: leukemoid reaction Qualified Codes: D72.823 - Leukemoid reaction (5) Thrombocytosis Status: Chronic Assessment & Plan: Usual platelet count 550 but today 1019 (6) Hypothyroidism Status: Chronic Assessment & Plan: Restart home med Qualifiers: Hypothyroidism type: acquired Qualified Codes: E03.9 - Hypothyroidism, unspecified (7) Intractable abdominal pain Status: Acute Assessment & Plan: Dilaudid for pain control (8) Fever Status: Acute Qualifiers: Fever type: unspecified Qualified Codes: R50.9 - Fever, unspecified Clinical Quality Measures DVT/VTE Risk/Contraindication: Risk Factor Score Per Nursin RFS Level Per Nursing on Admit: 1=Low/No VTE PPX TRA ALLEN DO Oct 09, 2017 10:32
[2017-10-09] MEDS ORDERED: PIPERACILLIN/TAZOBACTAM 3.375 GM in D5W 100 ML IVPB 100 ML IV SCH (10:45)
[2017-10-09] MEDS ORDERED: PIPERACILLIN/TAZO 3.375 GM/D5W 100 ML IV NR ×2 (11:00)
[2017-10-09] MEDS ORDERED: GADOBUTROL 10 MMOL/10 ML (GADAVIST) VIAL IV ONE (11:15)
[2017-10-09] MEDS: LEVOTHYROXINE 50 MCG (LEVOTHROID) TAB PO SCH (11:54)
[2017-10-09 12:01] VITALS: BP_SYST 108; BP_DIAS 68; BP_DIAS 8
--- NOTE | 2017-10-09 12:08 | Diagnostic Imaging Report ---
PROCEDURE: MR imaging abdomen with and without contrast. TECHNIQUE: Multiplanar, multisequence MR imaging of the abdomen was performed with and without contrast. INDICATION: Abdominal pain and back pain for three weeks. Recent CT demonstrated portal vein and superior mesenteric vein thrombosis. Study is performed to evaluate for a potential liver mass. COMPARISON: Correlation is made with recent CT study from one day earlier. FINDINGS: The liver demonstrates a homogeneous signal intensity. No discrete liver mass is identified. There is contrast within the right, middle, and left hepatic veins as well as the IVC. Thrombus is again noted within the main portal vein as well as the right and left branches. Thrombus does extend into the superior mesenteric vein. The pancreas is unremarkable. No discrete pancreatic mass is identified. There is no biliary ductal dilatation identified. The spleen is surgically absent. No adrenal or renal mass is identified. A small right pleural effusion is again seen. IMPRESSION: Continued findings of portal vein and superior mesenteric vein thrombosis. No discrete liver or pancreatic mass is identified. Dictated by: Dictated on workstation # [id number]
[2017-10-09 16:00] VITALS: BP 112/62
--- NOTE | 2017-10-09 16:40 | CONSULTATION REPORT ---
DATE OF SERVICE: 10/09/2017 The patient is admitted to ICU bed 5. REFERRING AND PRIMARY PHYSICIAN: Lindsay Robison DO IMPRESSION: 1. A 52-year-old female admitted with worsening abdominal and mid back pain for the last 3 to 4 weeks. 2. Found to have extensive portal vein and superior mesenteric vein thrombosis. 3. History of hereditary spherocytosis and splenectomy in childhood. RECOMMENDATIONS: 1. Continue heparin and maintain a PTT in the 2 to 3 times normal range. 2. Continue pain control as you are doing. Once the pain is better, gradually wean off the pain medications. 3. Once the pain is under control, switched to oral anticoagulants and discharge when stable from the hospital. 4. The patient is at increased risk for DVTs because of hereditary spherocytosis and splenectomy. She will need lifelong anticoagulation. 5. Because of family history of thrombosis in her daughter who does not have hereditary spherocytosis, I will initiate a thrombophilia workup and obtain factor II and factor V mutation analysis. 6. Schedule an [facility] in approximately a month. HISTORY OF PRESENT ILLNESS: The patient is a 52-year-old female with a 3+ weeks of back and abdominal discomfort. She was seen at the emergency room 3 weeks ago. The diagnosis of UTI was made with treatment with antibiotics. The discomfort continued to worsen and the patient had radiologic evaluations to rule out bony abnormalities or infections. Recently, a CT scan of the abdomen was done, which showed a significant portal vein and superior mesenteric vein thrombosis. She was admitted to the hospital for pain control and anticoagulation and a hematology consultation was requested. PAST MEDICAL HISTORY: Significant for hereditary spherocytosis. She underwent a splenectomy at 1 years of age and thinks that she must have had an appendectomy at the time of splenectomy. She denied any other medical problems other than hypothyroidism and is on replacement. PAST SURGICAL HISTORY: Include a cholecystectomy several years ago. SOCIAL HISTORY: The patient is and lives in [place], [place]. She has a daughter age 34 and a son age 32 years. She is working at [employer] since the last 13 years. 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 She denied any tobacco, alcohol or other recreational drug use. FAMILY HISTORY: The patient is adopted and does not know her biological family. Her son was diagnosed with hereditary spherocytosis and has history of blood clots. Her daughter does not have hereditary spherocytosis, but she had a DVT at a young age. The patient is postmenopausal since the last four years and is not taking any estrogen replacement therapy. PHYSICAL EXAMINATION: GENERAL: Today showed a middle-aged female, well developed and nourished, awake and oriented, in moderate distress due to the pain. VITAL SIGNS: Temperature was 98.5, pulse rate of 75, respirations 16, blood pressure 108/68 with oxygen saturation 90% on room air. HEENT: Normocephalic, extraocular muscles intact, conjunctivae pink, oral mucosa moist without lesions. NECK: Supple, with no JVD. No cervical, supraclavicular or axillary lymphadenopathy palpable. CHEST: Symmetrical. LUNGS: Clear to auscultation without wheezes or rales. HEART: Regular in rate and rhythm without murmurs or gallops. ABDOMEN: Soft with a diffuse tenderness without guarding or rebound. Deep palpation was not done. EXTREMITIES: Showed no edema. NEUROLOGIC: Grossly intact without focal motor deficits. LABORATORY DATA: CBC done today showed WBC 18.2, hemoglobin 12.0, MCV 81, platelet count 626,000 with neutrophil count 11.3, lymphocyte count 4.2 and monocyte count 2.4. Chemistry panel showed relatively normal electrolytes. BUN was 9 and creatinine 0.61 with GFR more than 60 mL per minute. Liver function studies were within normal limits. Serum LDH was 308. UA was unremarkable. CT scan of the chest, abdomen and pelvis done on 10/08/2017 showed consistent with portal vein and superior mesenteric vein thrombosis, which was felt to be chronic with a cavernous transformation of the portal vein. There was also moderate mesenteric congestion and the acuity of the SMV thrombosis is indeterminate. No liver masses were identified. No secondary signs of mesenteric ischemia detected. Moderate free fluid present. MRI of the abdomen was done today, which showed no discrete liver or pancreatic mass identified. Continued finding of portal vein and superior mesenteric vein thrombosis. Thank you for allowing me to participate in this patient's care. I will be out of town for [address] Ott will be covering for me during next week for any problems. Job ID: [id number] DocumentID: [id number] Dictated Date: 10/09/2017 12:38:19 Bean Picker Machine Operator Date: 10/09/2017 16:39:33 Dictated By: PALOMO LOPEZ MD [facility] CENTERLissy
[2017-10-09] MEDS: PIPERACILLIN/TAZO 3.375 GM/D5W 100 ML IV SCH ×2 (17:28)
[2017-10-09 20:13] VITALS: BP 112/62
[2017-10-10] MEDS: HYDROmorphone 1 MG/ML (DILAUDID) 1 ML SYRINGE IV PRN ×5 (00:28→23:51)
[2017-10-10 00:34] VITALS: BP 102/57
[2017-10-10] MEDS: PIPERACILLIN/TAZO 3.375 GM/D5W 100 ML IV SCH ×6 (02:49→17:14)
[2017-10-10] MEDS: HEParin DRIP 25000 UNIT/500ML 500 ML IV SCH ×2 (04:03→23:56)
[2017-10-10 06:24] VITALS: BP 110/66
[2017-10-10 06:29] LABS: BASOPHILS # (AUTO) 0.1 10^3/uL (0.0-0.1); BASOPHILS % (AUTO) 0 % (0-10); EOSINOPHILS # (AUTO) 0.2 10^3/uL (0.0-0.3); EOSINOPHILS % (AUTO) 1 % (0-10); HEMATOCRIT 32 % (35-52); HEMOGLOBIN 10.5 G/DL (11.5-16.0); LYMPHOCYTES # (AUTO) 4.2 X 10^3 (1.0-4.0); LYMPHOCYTES % (AUTO) 25 % (12-44); MEAN CORPUSCULAR HEMOGLOBIN 28 PG (25-34); MEAN CORPUSCULAR HGB CONC 33 G/DL (32-36); MEAN CORPUSCULAR VOLUME 86 FL (80-99); MEAN PLATELET VOLUME 10.2 FL (7.4-10.4); MONOCYTES # (AUTO) 2.1 X 10^3 (0.0-1.0); MONOCYTES % (AUTO) 13 % (0-12); NEUTROPHILS # (AUTO) 10.1 X 10^3 (1.8-7.8); NEUTROPHILS % (AUTO) 60 % (42-75); PLATELET COUNT 893 10^3/uL (130-400); RED CELL DISTRIBUTION WIDTH 13.7 % (10.0-14.5); WHITE BLOOD COUNT 16.7 10^3/uL (4.3-11.0)
[2017-10-10 06:41] LABS: ALANINE AMINOTRANSFERASE 37 U/L (0-55); ALBUMIN 3.5 GM/DL (3.2-4.5); ALKALINE PHOSPHATASE 103 U/L (40-136); BILIRUBIN,TOTAL 0.9 MG/DL (0.1-1.0); BUN/CREATININE RATIO 10; CALCIUM 9.1 MG/DL (8.5-10.1); CARBON DIOXIDE 17 MMOL/L (21-32); CHLORIDE 104 MMOL/L (98-107); CREATININE SERUM 0.67 MG/DL (0.60-1.30); GFR ESTIMATED > 60; GLUCOSE 71 MG/DL (70-105); POTASSIUM 3.7 MMOL/L (3.6-5.0); SODIUM 136 MMOL/L (135-145); TOTAL PROTEIN 6.9 GM/DL (6.4-8.2)
[2017-10-10 08:00] VITALS: BP 130/76
[2017-10-10] MEDS: NS IV 1000 ML 1,000 ML IV SCH (08:24)
[2017-10-10] MEDS: ACETAMINOPHEN 500 MG TAB (TYLENOL) PO PRN (08:25)
[2017-10-10] MEDS: LEVOTHYROXINE 50 MCG (LEVOTHROID) TAB PO SCH (08:25)
--- NOTE | 2017-10-10 11:31 | Progress Note-Hospitalist ---
Subjective HPI/CC On Admission Date Seen by Provider: Oct 10, 2017 Time Seen by Provider: 10:30 CC: Severe abdominal/back pain HPI: This is a 52-year-old white female clinic patient of mine with a past medical history of hypothyroidism and splenectomy at age 21 years old due to spherocytosis who presented to the ER after incapacitating back and abdominal pain. It is to note 2 weeks ago she presented to the ER with lower back pain diagnosed with UTI for which she has had before but the pain worsened I followed up on urine culture it appeared to be normal malcom so antibiotic was discontinued and patient was treated for lower back muscle skeletal pain. Lumbar spine x-ray was obtained where she was having pain showing no significant abnormality. I saw her again this past Thursday due to severe back pain that was unrelenting and terrible insomnia due to the pain so noted that the back pain had risen to her bra line level of T9 so thoracic x-ray was obtained showing localized degeneration of T8-T9 which gave rise to my suspicion of thoracic spine abscess versus compression fracture versus metastasis. When she went to the ER I was in the process of getting an MRI approved. 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 This was thought to be acute due to the severity of her abdominal pain and I did speak with Dr. Rowley hematology after Dr. Jiang radiology and Dr. Nance ER physician and we discussed the case finding the patient need of hospitalization for pain control and heparin protocol and Dr. Breezy Shrestha has graciously agreed to see the patient in consultation. Will obtain an MRI of the liver to evaluate for liver mass of neoplastic origin. Subjective/Events-last exam Patient seems to not be motivated to get out of bed as instructed for her to do Will almost completely eliminate Dilaudid orders and placed on Percocet oral pain medication I have updated the patient on the change of pain medication to ambulate more and get out of bed and actually advance her diet to a regular diet since there is nothing to suggest that we cannot resume normal activities while on a heparin drip to decrease the clot burden I did speak with physical therapy who will see the patient Overall appears to be very poor recovery and little motivation No bowel movement yet so we'll initiate meds Will Hep-Lock IV fluid except for the heparin drip Liver abdominal MRI reveals no liver mass or any other issues except for the thrombosis Review of Systems General: Malaise Gastrointestinal: Abdominal Pain, Constipation Focused Exam Lactate Level 10/08/17 11:40: Lactic Acid Level 0.94 Objective Exam Vital Signs Vital Signs Date Time Temp Pulse Resp B/P (MAP) Pulse Ox O2 Delivery O2 Flow Rate FiO2 10/10/17 08:00 71 130/76 (94) 97 Nasal Cannula 2.00 10/10/17 06:24 98.6 16 Capillary Refill : Less Than 3 Seconds General Appearance: No Apparent Distress, WD/WN, Chronically ill, Other (drowsy , fatigued, in bed) Respiratory: Chest Non Tender, Lungs Clear, Normal Breath Sounds, No Accessory Muscle Use, No Respiratory Distress Cardiovascular: Regular Rate, Rhythm, No Edema, No Gallop, No JVD, No Murmur, Normal Peripheral Pulses Neurologic/Psychiatric: Alert, Oriented x3, No Motor/Sensory Deficits, Normal Mood/Affect Skin: Normal Color, Warm/Dry Results/Procedures Lab Laboratory Tests 10/10/17 01:55 Patient resulted labs reviewed. Assessment/Plan Assessment and Plan Assess & Plan/Chief Complaint Assessment: Superior mesenteric and portal vein thrombosis acute Severe abdominal pain Slow recovery Situational depression Constipation Heparin drip Transfer to fourth floor Physical therapy Out of bed [place]' Heparin drip We'll change management coordinator to oral pain medication today and anticoagulation tomorrow BM regimen Diagnosis/Problems Diagnosis/Problems (1) Portal vein thrombosis Status: Acute Assessment & Plan: Heparin drip and stepdown status to monitor closely and consult hematology Dr. 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 (3) H/O splenectomy Status: Chronic Assessment & Plan: Performed 1 years old due to spherocytosis (4) Leukocytosis Status: Acute Qualifiers: Leukocytosis type: leukemoid reaction Qualified Codes: D72.823 - Leukemoid reaction (5) Thrombocytosis Status: Chronic Assessment & Plan: Usual platelet count 550 but today 1019 (6) Hypothyroidism Status: Chronic Assessment & Plan: Restart home med Qualifiers: Hypothyroidism type: acquired Qualified Codes: E03.9 - Hypothyroidism, unspecified (7) Intractable abdominal pain Status: Acute Assessment & Plan: Dilaudid for pain control (8) Constipation Status: Acute Qualifiers: Constipation type: drug induced constipation Qualified Codes: K59.03 - Drug induced constipation (9) Poor motivation Status: Acute (10) Situational depression Status: Acute (11) Fever Status: Resolved Assessment & Plan: Maintain on empiric Zosyn for another day Qualifiers: Fever type: unspecified Qualified Codes: R50.9 - Fever, unspecified Clinical Quality Measures DVT/VTE Risk/Contraindication: Risk Factor Score Per Nursin RFS Level Per Nursing on Admit: 1=Low/No VTE PPX TRA ALLEN DO Oct 10, 2017 11:31
[2017-10-10] MEDS ORDERED: LACTULOSE SYRUP 10GM/15ML (ENULOSE) 30ML UDC PO PRN (11:45)
--- NOTE | 2017-10-10 11:52 | Physical Therapy Evaluation ---
PT Evaluation-General Medical Diagnosis Admission Date Oct 08, 2017 at 15:38 Medical Diagnosis: Portal Vein Thrombosis Onset Date: Oct 10, 2017 Therapy Diagnosis Therapy Diagnosis: weakness Height/Weight Height (Feet): 5 Height (Inches): 6.00 Weight (Pounds): 226 Weight (Ounces): 6.0 Precautions Precautions/Isolations: Standard Precautions Weight Bear Status Full Weight Bearing Full Weight Bearing Referral Physician: Enriqueta Reason for Referral: Evaluation/Treatment Medical History Pertinent Medical History: Thrombosis Current History 3 week history of low back and abdominal pain. Admitted through ER and found to have an abdominal portal vein thrombosis. Admitted for anticoagulation. Reviewed History: Yes Prior/Core FIM Prior Level of Function Functional [place] Measure 0=Not Assessed/NA 4=Minimal Assistance 1=Total Assistance 5=Supervision or Setup 2=Maximal Assistance 6=Modified [place] 3=Moderate Assistance 7=Complete [place] Bed Mobility: 7 Transfers (B,C,W/C) (FIM): 7 Gait: 7 Locomotion: 7 PT Evaluation-Current Subjective Pt complains of nausea and generalized back and abdominal pain 10/20. She feels weak from prolonged bed rest. Objective Patient Orientation: Normal For Age Problem Solving: Good Attachments: IV ROM/Strength Strength Upper Extremities gross 4+/5 throughout Strength Lower Extremities 4+/5 throughout Sensory Vision: Functional Hearing: Functional Transfers Functional [place] Measure 0=Not Assessed/NA 4=Minimal Assistance 1=Total Assistance 5=Supervision or Setup 2=Maximal Assistance 6=Modified [place] 3=Moderate Assistance 7=Complete [place] Transfers (B, C, W/C) (FIM): 5 Supine to/from Sit: 6 Sit to/from Stand: 6 slow and uses rails secondary to pain Gait Mode of Locomotion: Walk Anticipated Mode of Locomotion: Walk Gait (FIM): 5 Distance: 150 Gait Level of Assist: 5 Gait Persons Needed: 1 Gait Assistive Device: None Comments/Gait Description Ambulated 150ft SBA with assist for IV. Pt slow and guarded secondary to abdominal pain. Balance Sitting Static: Normal Sitting Dynamic: Normal Standing Static: Good Standing Dynamic: Good Assessment/Needs Pt has diminished balance and activity tolerance following several weeks of inactivity due to illness. She will benefit from short term therapy to encourage return to activity and safe mobility skills. Rehab Potential: Good PT Care Home Goals Forensic Structural Engineer Goals PT Care Home Goals Time Frame: Oct 16, 2017 Transfers (B,C,W/C) (FIM): 7 Gait (FIM): 7 Gait distance (FIM): 3=150 ft Distance: 500 Gait Level of Assist: 7 Gait Assistive Device: None PT Plan Problem List Problem List: Activity Tolerance, Gait Treatment/Plan Treatment Plan: Continue Plan of Care Treatment Plan: Functional Activity Gm, Gait Treatment Duration: Oct 16, 2017 Frequency: 5 times per week Estimated Hrs Per Day: .25 hour per day Patient and/or Family Agrees t: Yes Time/GCodes Time In: 1135 Time Out: 1155 Total Billed Treatment Time: 20 Total Billed Treatment visit, eval low complexity G Codes Necessary: No ESTEFANY FRANKEL PT Oct 10, 2017 11:52
[2017-10-10 12:00] VITALS: BP 132/78
[2017-10-10] MEDS: POLYETHYLENE GLYCOL 17 GM (MIRALAX) PACK PO SCH ×2 (12:33→20:17)
[2017-10-10] MEDS: DOCUSATE SODIUM 100 MG (COLACE) CAP PO SCH ×2 (12:33→20:17)
[2017-10-10] MEDS: SENNA W/DOCUSATE (SENOKOT S) TABLET PO SCH ×2 (12:34→20:17)
[2017-10-10 16:20] VITALS: BP 133/70
[2017-10-10] MEDS: ONDANSETRON 4 MG/2 ML (SDV) Z0FRAN IV PRN (17:14)
[2017-10-10] MEDS: oxyCODONE/APAP 10/325MG (PERCOCET 10) TABLET PO PRN ×2 (18:30→23:58)
[2017-10-10 20:00] VITALS: BP 125/66
[2017-10-11] VITALS (7 sets, daily range): BP systolic 123–160; BP diastolic 66–84
[2017-10-11] MEDS: PIPERACILLIN/TAZO 3.375 GM/D5W 100 ML IV SCH ×6 (00:42→17:06)
[2017-10-11 08:15] LABS: BASOPHILS # (AUTO) 0.1 10^3/uL (0.0-0.1); BASOPHILS % (AUTO) 0 % (0-10); EOSINOPHILS # (AUTO) 0.2 10^3/uL (0.0-0.3); EOSINOPHILS % (AUTO) 1 % (0-10); HEMATOCRIT 28 % (35-52); HEMOGLOBIN 9.7 G/DL (11.5-16.0); LYMPHOCYTES # (AUTO) 2.8 X 10^3 (1.0-4.0); LYMPHOCYTES % (AUTO) 18 % (12-44); MEAN CORPUSCULAR HEMOGLOBIN 28 PG (25-34); MEAN CORPUSCULAR HGB CONC 35 G/DL (32-36); MEAN CORPUSCULAR VOLUME 82 FL (80-99); MONOCYTES # (AUTO) 1.8 X 10^3 (0.0-1.0); MONOCYTES % (AUTO) 11 % (0-12); NEUTROPHILS # (AUTO) 10.9 X 10^3 (1.8-7.8); NEUTROPHILS % (AUTO) 70 % (42-75); PLATELET COUNT 841 10^3/uL (130-400); RED BLOOD COUNT 3.44 10^6/uL (4.35-5.85); RED CELL DISTRIBUTION WIDTH 13.8 % (10.0-14.5); WHITE BLOOD COUNT 15.7 10^3/uL (4.3-11.0)
[2017-10-11 08:34] LABS: ALANINE AMINOTRANSFERASE 38 U/L (0-55); ALBUMIN 3.3 GM/DL (3.2-4.5); ALKALINE PHOSPHATASE 93 U/L (40-136); BILIRUBIN,TOTAL 0.8 MG/DL (0.1-1.0); BUN/CREATININE RATIO 7; CALCIUM 8.9 MG/DL (8.5-10.1); CARBON DIOXIDE 25 MMOL/L (21-32); CHLORIDE 103 MMOL/L (98-107); GFR ESTIMATED > 60; GLUCOSE 93 MG/DL (70-105); POTASSIUM 3.5 MMOL/L (3.6-5.0); SODIUM 140 MMOL/L (135-145); TOTAL PROTEIN 6.2 GM/DL (6.4-8.2)
[2017-10-11] MEDS: LEVOTHYROXINE 50 MCG (LEVOTHROID) TAB PO SCH (08:54)
[2017-10-11] MEDS: POLYETHYLENE GLYCOL 17 GM (MIRALAX) PACK PO SCH ×2 (08:54→21:11)
[2017-10-11] MEDS: DOCUSATE SODIUM 100 MG (COLACE) CAP PO SCH ×2 (08:54→20:25)
[2017-10-11] MEDS: SENNA W/DOCUSATE (SENOKOT S) TABLET PO SCH ×2 (08:54→20:25)
--- NOTE | 2017-10-11 10:26 | Progress Note-Hospitalist ---
Subjective HPI/CC On Admission Date Seen by Provider: Oct 11, 2017 Time Seen by Provider: 10:40 CC: Severe abdominal/back pain HPI: This is a 52-year-old white female clinic patient of mine with a past medical history of hypothyroidism and splenectomy at age 21 years old due to spherocytosis who presented to the ER after incapacitating back and abdominal pain. It is to note 2 weeks ago she presented to the ER with lower back pain diagnosed with UTI for which she has had before but the pain worsened I followed up on urine culture it appeared to be normal malcom so antibiotic was discontinued and patient was treated for lower back muscle skeletal pain. Lumbar spine x-ray was obtained where she was having pain showing no significant abnormality. I saw her again this past Thursday due to severe back pain that was unrelenting and terrible insomnia due to the pain so noted that the back pain had risen to her bra line level of T9 so thoracic x-ray was obtained showing localized degeneration of T8-T9 which gave rise to my suspicion of thoracic spine abscess versus compression fracture versus metastasis. When she went to the ER I was in the process of getting an MRI approved. 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 This was thought to be acute due to the severity of her abdominal pain and I did speak with Dr. Rowley hematology after Dr. Jiang radiology and Dr. Nance ER physician and we discussed the case finding the patient need of hospitalization for pain control and heparin protocol and Dr. Breezy Shrestha has graciously agreed to see the patient in consultation. Will obtain an MRI of the liver to evaluate for liver mass of neoplastic origin. Subjective/Events-last exam Patient having difficulty with motivation but it appears we are making progress Just had 2 bowel movements this morning Trying to eat more Will ambulate in the halls today Had an episode of abdominal pain last night resolved with Dilaudid Percocet tolerated well Talked her about oral anticoagulation and follow-up with Dr. Alcaraz I will see the patient in my clinic on she will take this week off from work Maintain on antibiotic and will complete that tomorrow before discharge Review of Systems General: Malaise Gastrointestinal: Abdominal Pain Focused Exam Lactate Level Objective Exam Vital Signs Vital Signs Date Time Temp Pulse Resp B/P (MAP) Pulse Ox O2 Delivery O2 Flow Rate FiO2 10/11/17 09:30 96.4 68 18 123/78 (93) 95 Room Air 10/11/17 08:00 2.00 Capillary Refill : Less Than 3 Seconds General Appearance: No Apparent Distress, WD/WN, Chronically ill Respiratory: Lungs Clear, Normal Breath Sounds Cardiovascular: Regular Rate, Rhythm, No Edema Gastrointestinal: Soft Neurologic/Psychiatric: Alert, Oriented x3, No Motor/Sensory Deficits, Depressed Affect Results/Procedures Lab Laboratory Tests 10/11/17 08:05 Patient resulted labs reviewed. 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 (3) H/O splenectomy Status: Chronic Assessment & Plan: Performed 1 years old due to spherocytosis (4) Leukocytosis Status: Acute Qualifiers: Leukocytosis type: leukemoid reaction Qualified Codes: D72.823 - Leukemoid reaction (5) Thrombocytosis Status: Chronic Assessment & Plan: Usual platelet count 550 but today 1019 (6) Hypothyroidism Status: Chronic Assessment & Plan: Restart home med Qualifiers: Hypothyroidism type: acquired Qualified Codes: E03.9 - Hypothyroidism, unspecified (7) Intractable abdominal pain Status: Acute Assessment & Plan: Dilaudid for pain control (8) Constipation Status: Resolved Qualifiers: Constipation type: drug induced constipation Qualified Codes: K59.03 - Drug induced constipation (9) Poor motivation Status: Acute (10) Situational depression Status: Acute (11) Fever Status: Resolved Assessment & Plan: Maintain on empiric Zosyn for another day Qualifiers: Fever type: unspecified Qualified Codes: R50.9 - Fever, unspecified Clinical Quality Measures DVT/VTE Risk/Contraindication: Risk Factor Score Per Nursin RFS Level Per Nursing on Admit: 1=Low/No VTE PPX TRA ALLEN DO Oct 11, 2017 10:25
[2017-10-11] MEDS ORDERED: BISACODYL 10 MG SUPP (DULCOLAX) PR ONE (10:30)
[2017-10-11] MEDS ORDERED: FLEET ENEMA ADULT 1 EA BTL PR ONE (10:30)
[2017-10-11] MEDS ORDERED: KCL 10 MEQ TAB (MICRO K) PO ONE (10:30)
[2017-10-11] MEDS: APIXABAN 5 MG (ELIQUIS) TABLET PO SCH ×2 (11:06→20:23)
[2017-10-11] MEDS: oxyCODONE/APAP 10/325MG (PERCOCET 10) TABLET PO PRN ×2 (12:50→20:26)
[2017-10-11] MEDS: HYDROmorphone 1 MG/ML (DILAUDID) 1 ML SYRINGE IV PRN ×2 (13:06→23:45)
[2017-10-11] MEDS: HEParin DRIP 25000 UNIT/500ML 500 ML IV SCH (17:25)
[2017-10-12] MEDS: oxyCODONE/APAP 10/325MG (PERCOCET 10) TABLET PO PRN ×2 (00:18→07:53)
[2017-10-12] MEDS: PIPERACILLIN/TAZO 3.375 GM/D5W 100 ML IV SCH ×4 (00:49→08:44)
[2017-10-12 00:58] VITALS: BP 138/68
[2017-10-12 04:00] VITALS: BP 130/72
[2017-10-12 06:04] LABS: BASOPHILS # (AUTO) 0.1 10^3/uL (0.0-0.1); BASOPHILS % (AUTO) 0 % (0-10); EOSINOPHILS # (AUTO) 0.3 10^3/uL (0.0-0.3); EOSINOPHILS % (AUTO) 3 % (0-10); HEMATOCRIT 28 % (35-52); HEMOGLOBIN 9.5 G/DL (11.5-16.0); LYMPHOCYTES % (AUTO) 22 % (12-44); MEAN CORPUSCULAR HEMOGLOBIN 29 PG (25-34); MEAN CORPUSCULAR HGB CONC 34 G/DL (32-36); MEAN CORPUSCULAR VOLUME 84 FL (80-99); MEAN PLATELET VOLUME 9.5 FL (7.4-10.4); MONOCYTES # (AUTO) 1.6 X 10^3 (0.0-1.0); MONOCYTES % (AUTO) 12 % (0-12); NEUTROPHILS # (AUTO) 8.5 X 10^3 (1.8-7.8); NEUTROPHILS % (AUTO) 63 % (42-75); PLATELET COUNT 742 10^3/uL (130-400); RED CELL DISTRIBUTION WIDTH 14.1 % (10.0-14.5); WHITE BLOOD COUNT 13.5 10^3/uL (4.3-11.0)
[2017-10-12 06:25] LABS: ALANINE AMINOTRANSFERASE 45 U/L (0-55); ALBUMIN 3.1 GM/DL (3.2-4.5); ALKALINE PHOSPHATASE 89 U/L (40-136); BILIRUBIN,TOTAL 0.7 MG/DL (0.1-1.0); BUN/CREATININE RATIO 5; CALCIUM 8.8 MG/DL (8.5-10.1); CARBON DIOXIDE 23 MMOL/L (21-32); CHLORIDE 104 MMOL/L (98-107); GFR ESTIMATED > 60; GLUCOSE 91 MG/DL (70-105); POTASSIUM 3.2 MMOL/L (3.6-5.0); SODIUM 139 MMOL/L (135-145); TOTAL PROTEIN 5.8 GM/DL (6.4-8.2)
[2017-10-12] MEDS: ONDANSETRON 4 MG/2 ML (SDV) Z0FRAN IV PRN (06:54)
[2017-10-12] MEDS ORDERED: KCL 10 MEQ TAB (MICRO K) PO SCH (07:00)
[2017-10-12] MEDS: HEParin DRIP 25000 UNIT/500ML 500 ML IV SCH (07:56)
[2017-10-12 08:00] VITALS: BP 127/68
[2017-10-12] MEDS: SENNA W/DOCUSATE (SENOKOT S) TABLET PO SCH (08:38)
[2017-10-12] MEDS: POLYETHYLENE GLYCOL 17 GM (MIRALAX) PACK PO SCH (08:38)
[2017-10-12] MEDS: DOCUSATE SODIUM 100 MG (COLACE) CAP PO SCH (08:38)
[2017-10-12] MEDS: LEVOTHYROXINE 50 MCG (LEVOTHROID) TAB PO SCH (08:38)
[2017-10-12] MEDS ORDERED: APIXABAN 5 MG (ELIQUIS) TABLET PO SCH (09:00)
[2017-10-12] MEDS ORDERED: APIX5TAB PO (09:10)
[2017-10-12] MEDS ORDERED: SENN-20 PO (09:10)
[2017-10-12] MEDS ORDERED: DOCU100C37 PO (09:10)
[2017-10-12] MEDS ORDERED: POTA10TA6 PO (09:10)
[2017-10-12] MEDS ORDERED: OXYC-465 PO (09:10)
[2017-10-12] MEDS ORDERED: ONDA8TAB9 SL (09:14)
--- NOTE | 2017-10-12 09:14 | Discharge Summary-Hospitalist ---
Diagnosis/Chief Complaint Date of Admission Oct 08, 2017 at 15:38 Date of Discharge Discharge Date: Oct 12, 2017 Admission Diagnosis Acute and extensive portal vein and superior mesenteric thrombosis Discharge Diagnosis (1) Portal vein thrombosis Status: Acute Assessment & Plan: Heparin drip and stepdown status to monitor closely and consult hematology Dr. 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 (3) H/O splenectomy Status: Chronic Assessment & Plan: Performed 1 years old due to spherocytosis (4) Leukocytosis Status: Acute (5) Thrombocytosis Status: Chronic Assessment & Plan: Usual platelet count 550 but today 1019 (6) Hypothyroidism Status: Chronic Assessment & Plan: Restart home med (7) Intractable abdominal pain Status: Acute Assessment & Plan: Dilaudid for pain control (8) Constipation Status: Resolved (9) Poor motivation Status: Acute (10) Situational depression Status: Acute (11) Fever Status: Resolved Assessment & Plan: Maintain on empiric Zosyn for another day Discharge Summary Discharge Physical Exam Allergies: Coded Allergies: No Known Drug Allergies (Unverified , 05/18/12) Vitals & I&Os Vital Signs Date Time Temp Pulse Resp B/P (MAP) Pulse Ox O2 Delivery O2 Flow Rate FiO2 10/12/17 08:00 98.4 68 18 127/68 (87) 92 Room Air 10/11/17 08:00 2.00 General Appearance: Alert, Oriented X3, Cooperative Respiratory: Clear to Auscultation Cardiovascular: Regular Rate, Normal S1, Normal S2 Neuro: Normal Gait, Normal Speech, Strength at 5/5 X4 Ext Psych/Mental Status: Mental Status NL Hospital Course Hospital course: Patient had a standard hospital course she was admitted due to acute superior mesenteric and portal vein thrombosis and hematology was consulted and placed on heparin drip. Overall she had difficulty motivating and getting out of bed and was taking too many narcotics of Dilaudid and Percocet so those were changed accordingly patient was given physical therapy to get out of bed and antibiotics were placed empirically due to fever and a splenectomy patient. Overall she did well but would be in need of hematology consultation as outpatient and maintained on Eliquis and I will see her in close follow-up on she will be off work the whole entire week until next Thursday. Labs (last 24 hrs) Laboratory Tests 10/12/17 00:00: Glucometer 108 10/12/17 05:26: White Blood Count 13.5H, Red Blood Count 3.30L, Hemoglobin 9.5L, Hematocrit 28L , Mean Corpuscular Volume 84, Mean Corpuscular Hemoglobin 29, Mean Corpuscular Hemoglobin Concent 34, Red Cell Distribution Width 14.1, Platelet Count 742H, Mean Platelet Volume 9.5, Neutrophils (%) (Auto) 63, Lymphocytes (%) (Auto) 22, Monocytes (%) (Auto) 12, Eosinophils (%) (Auto) 3, Basophils (%) (Auto) 0, Neutrophils # (Auto) 8.5H, Lymphocytes # (Auto) 3.0, Monocytes # (Auto) 1.6H, Eosinophils # (Auto) 0.3, Basophils # (Auto) 0.1, Activated Partial Thromboplast Time 47H, Sodium Level 139, Potassium Level 3.2L, Chloride Level 104, Carbon Dioxide Level 23, Anion Gap 12, Blood Urea Nitrogen 3L, Creatinine 0.60, Estimat Glomerular Filtration Rate > 60, BUN/Creatinine Ratio 5, Glucose Level 91, Calcium Level 8.8, Total Bilirubin 0.7, Aspartate Amino Transf (AST/ SGOT) 46H, Alanine Aminotransferase (ALT/SGPT) 45, Alkaline Phosphatase 89, Total Protein 5.8L, Albumin 3.1L Microbiology 10/08/17 Blood Culture - Preliminary, Resulted No growth Patient resulted labs reviewed. Pending Labs Laboratory Tests 10/12/17 05:26: White Blood Count 13.5, Red Blood Count 3.30, Hemoglobin 9.5, Hematocrit 28, Mean Corpuscular Volume 84, Mean Corpuscular Hemoglobin 29, Mean Corpuscular Hemoglobin Concent 34, Red Cell Distribution Width 14.1, Platelet Count 742, Mean Platelet Volume 9.5, Neutrophils (%) (Auto) 63, Lymphocytes (%) (Auto) 22, Monocytes (%) (Auto) 12, Eosinophils (%) (Auto) 3, Basophils (%) (Auto) 0, Neutrophils # (Auto) 8.5, Lymphocytes # (Auto) 3.0, Monocytes # (Auto) 1.6, Eosinophils # (Auto) 0.3, Basophils # (Auto) 0.1, Activated Partial Thromboplast Time 47, Sodium Level 139, Potassium Level 3.2, Chloride Level 104 , Carbon Dioxide Level 23, Anion Gap 12, Blood Urea Nitrogen 3, Creatinine 0.60 , Estimat Glomerular Filtration Rate > 60, BUN/Creatinine Ratio 5, Glucose Level 91, Calcium Level 8.8, Total Bilirubin 0.7, Aspartate Amino Transf (AST/ SGOT) 46, Alanine Aminotransferase (ALT/SGPT) 45, Alkaline Phosphatase 89, Total Protein 5.8, Albumin 3.1 Discussion & Recommendations Discharge Planning: <30 minutes discharge planning Discharge Home Medications: Active Scripts Active Zofran Odt (Ondansetron) 8 Mg Tab.rapdis 8 Mg SL Q4H PRN Eliquis (Apixaban) 5 Mg Tablet 5 Mg PO BID 28 Days TAKE 2 TABLETS BID X 7 DAYS, THEN 1 TABLET BID Klor-Con 10 (Potassium Chloride) 10 Meq Tablet.er 10 Meq PO DAILY@0700 Oxycodone-Acetaminophen 10-325 (Oxycodone HCl/Acetaminophen) 1 Each Tablet 1 Tab PO Q4HR PRN Docusate Sodium 100 Mg Capsule 100 Mg PO BID Senna-Time S Tablet (Sennosides/Docusate Sodium) 1 Each Tablet 2 Ea PO BID Reported Cranberry (Cranberry Extract) 250 Mg Capsule 250 Mg PO DAILY Cyclobenzaprine HCl 10 Mg Tablet 10 Mg PO DAILY PRN 15 FILLED 6-19-18 Levothyroxine Sodium 50 Mcg Tablet 50 Mcg PO DAILY Hydrocodone-Acetamin 5-325 mg (Hydrocodone/Acetaminophen) 1 Each Tablet 1 Tab PO Q4H PRN Instructions to patient/family Please see electronic discharge instructions given to patient. Clinical Quality Measures DVT/VTE Risk/Contraindication: Risk Factor Score Per Nursin RFS Level Per Nursing on Admit: 1=Low/No VTE PPX Problem Qualifiers (1) Leukocytosis: Leukocytosis type: leukemoid reaction Qualified Codes: D72.823 - Leukemoid reaction (2) Hypothyroidism: Hypothyroidism type: acquired Qualified Codes: E03.9 - Hypothyroidism, unspecified (3) Constipation: Constipation type: drug induced constipation Qualified Codes: K59.03 - Drug induced constipation (4) Fever: Fever type: unspecified Qualified Codes: R50.9 - Fever, unspecified TRA ALLEN DO Oct 12, 2017 09:13
--- NOTE | 2017-10-12 10:15 | Physical Therapy Daily Note ---
PT Daily Note-Current Subjective Patient continues to c/o slight dizziness. Agrees to PT. Pain Numeric Pain Scale: 5-Moderate Pain Location: Lower Location Body Site: Back Pain Description: Ache Mental Status Patient Orientation: Normal For Age Transfers Functional [place] Measure 0=Not Assessed/NA 4=Minimal Assistance 1=Total Assistance 5=Supervision or Setup 2=Maximal Assistance 6=Modified [place] 3=Moderate Assistance 7=Complete IndependenceIRFPAI Quality Coding Scale 6 Independent with activity with or without an assistive device 5 Patient requires set up or clean up by helper. Patient completes activity by themselves 4 Supervision or touching assist (CGA). [place] provide cues , steadying assist 3 The helper provides less than half the effort to complete the activity 2 The helper provides more than half the effort to complete the activity 1 Dependent. The helper does all the effort to complete an activity 7 Patient refused to complete or attempt activity 9 The patient did not perform the activity before the current illness or injury 88 Not attempted due to Medical conditions or safety concerns Transfers (B, C, W/C) (FIM): 7 Scootin Sit to/from Stand: 7 Weight Bearing Full Weight Bearing Full Weight Bearing Gait Training Gait (FIM): 7 Distance (FIM): 3=150 ft Distance: 350' Gait Level of Assist: 7 Gait Assistive Device: None slow, steady, no deviations Assessment Patient is currently at independent PLOF with all gross motor skills safely and does not require skilled PT intervention. PT to dismiss patient from services at this time. PT Longterm Goals Longterm Goals PT Longterm Goals Time Frame: Oct 16, 2017 Transfers (B,C,W/C) (FIM): 7 Gait (FIM): 7 Gait distance (FIM): 3=150 ft Distance: 500 Gait Level of Assist: 7 Gait Assistive Device: None PT Plan Treatment/Plan Treatment Plan: Discontinue PT, goals met Treatment Plan: Functional Activity Gm, Gait Treatment Duration: Oct 16, 2017 Frequency: 5 times per week Estimated Hrs Per Day: .25 hour per day Patient and/or Family Agrees t: Yes Time/GCodes Time In: 931 Time Out: 939 Total Billed Treatment Time: 8 Total Billed Treatment 1 visit FA 8 min JERE SOTO PT Oct 12, 2017 10:15
[2017-10-12 10:57] VITALS: BP 127/68
== END 2017-10-12 10:50 | disposition home or self-care (01) | DRG 443 ==
LOC: EDUNIT# 09:54 → ER 09:56 → ICU 15:38 → 4TH 10-10 15:00
PROVIDERS: ADMIT Internal Medicine; ATTEND Internal Medicine
DX: I81 Portal vein thrombosis (principal); E86.0 Dehydration; D58.0 Hereditary spherocytosis; E03.9 Hypothyroidism, unspecified; F41.9 Anxiety disorder, unspecified; R11.2 Nausea with vomiting, unspecified; R63.0 Anorexia; D72.823 Leukemoid reaction; D47.2 Monoclonal gammopathy; D47.3 Essential (hemorrhagic) thrombocythemia; D50.9 Iron deficiency anemia, unspecified; K59.00 Constipation, unspecified; F43.21 Adjustment disorder with depressed mood; Z90.81 Acquired absence of spleen
CPT/HCPCS: 36415; 71260; 72157; 74177; 74183; 80053; 81000; 81240; 81241; 82962; 83605; 83615; 85007; 85025; 85027; 85049; 85610; 85652; 85730; 86141; 87040; 96361; 96374; 96375; 96376

== ENCOUNTER 2017-10-23 10:00 | Outpatient (RCR) | payer OTHER ==
[~2017-10-23 10:00] MED LIST changes: +APIX5TAB PO; +CRAN250C2 PO; +DOCU100C37 PO; +HYDR-3812 PO; +LEVO50TA6 PO; +ONDA8TAB9 SL; +OXYC-465 PO; +POTA10TA6 PO; +SENN-20 PO
== END 2017-11-10 | disposition home or self-care (01) ==
LOC: ONC 10:00
PROVIDERS: ATTEND Internal Medicine Hematology & Oncology
DX: D47.2 Monoclonal gammopathy (principal); D47.3 Essential (hemorrhagic) thrombocythemia; D50.9 Iron deficiency anemia, unspecified; E03.9 Hypothyroidism, unspecified; Z79.899 Other long term (current) drug therapy
CPT/HCPCS: 99213

== ENCOUNTER 2018-01-21 09:02 | Outpatient (RCR) | payer OTHER ==
[2018-01-21 09:11] LABS: BASOPHILS # (AUTO) 0.1 10^3/uL (0.0-0.1); BASOPHILS % (AUTO) 1 % (0-10); EOSINOPHILS # (AUTO) 0.1 10^3/uL (0.0-0.3); EOSINOPHILS % (AUTO) 2 % (0-10); HEMATOCRIT 38 % (35-52); HEMOGLOBIN 13.5 G/DL (11.5-16.0); LYMPHOCYTES # (AUTO) 2.3 X 10^3 (1.0-4.0); LYMPHOCYTES % (AUTO) 29 % (12-44); MEAN CORPUSCULAR HEMOGLOBIN 28 PG (25-34); MEAN CORPUSCULAR HGB CONC 35 G/DL (32-36); MEAN CORPUSCULAR VOLUME 81 FL (80-99); MEAN PLATELET VOLUME 9.1 FL (7.4-10.4); MONOCYTES # (AUTO) 0.9 X 10^3 (0.0-1.0); MONOCYTES % (AUTO) 12 % (0-12); NEUTROPHILS # (AUTO) 4.7 X 10^3 (1.8-7.8); NEUTROPHILS % (AUTO) 58 % (42-75); PLATELET COUNT 550 10^3/uL (130-400); RED BLOOD COUNT 4.76 10^6/uL (4.35-5.85); RED CELL DISTRIBUTION WIDTH 15.3 % (10.0-14.5); WHITE BLOOD COUNT 8.1 10^3/uL (4.3-11.0)
[2018-01-21 09:42] LABS: ALANINE AMINOTRANSFERASE 18 U/L (0-55); ALBUMIN 4.3 GM/DL (3.2-4.5); ALKALINE PHOSPHATASE 72 U/L (40-136); BILIRUBIN,TOTAL 1.6 MG/DL (0.1-1.0); BUN/CREATININE RATIO 16; CALCIUM 9.5 MG/DL (8.5-10.1); CARBON DIOXIDE 25 MMOL/L (21-32); CHLORIDE 107 MMOL/L (98-107); CREATININE SERUM 0.77 MG/DL (0.60-1.30); GFR ESTIMATED > 60; GLUCOSE 83 MG/DL (70-105); POTASSIUM 3.4 MMOL/L (3.6-5.0); SODIUM 140 MMOL/L (135-145); TOTAL PROTEIN 7.5 GM/DL (6.4-8.2)
== END 2018-04-21 | disposition home or self-care (01) ==
LOC: ONC 09:02
PROVIDERS: ATTEND Internal Medicine Hematology & Oncology
DX: D47.2 Monoclonal gammopathy (principal); D47.3 Essential (hemorrhagic) thrombocythemia; D50.9 Iron deficiency anemia, unspecified; E03.9 Hypothyroidism, unspecified; Z79.899 Other long term (current) drug therapy
CPT/HCPCS: 36415; 80053; 85025; 99213

== ENCOUNTER → 2018-07-21 | Outpatient (CLI) | payer OTHER ==
[2018-07-21 08:54] LABS: BASOPHILS % (AUTO) 1 % (0-10); EOSINOPHILS # (AUTO) 0.2 10^3/uL (0.0-0.3); EOSINOPHILS % (AUTO) 2 % (0-10); HEMATOCRIT 39 % (35-52); HEMOGLOBIN 13.5 G/DL (11.5-16.0); LYMPHOCYTES # (AUTO) 1.6 X 10^3 (1.0-4.0); LYMPHOCYTES % (AUTO) 23 % (12-44); MEAN CORPUSCULAR HEMOGLOBIN 30 PG (25-34); MEAN CORPUSCULAR HGB CONC 35 G/DL (32-36); MEAN CORPUSCULAR VOLUME 86 FL (80-99); MEAN PLATELET VOLUME 9.5 FL (7.4-10.4); MONOCYTES # (AUTO) 0.7 X 10^3 (0.0-1.0); MONOCYTES % (AUTO) 11 % (0-12); NEUTROPHILS # (AUTO) 4.5 X 10^3 (1.8-7.8); NEUTROPHILS % (AUTO) 64 % (42-75); PLATELET COUNT 485 10^3/uL (130-400); RED CELL DISTRIBUTION WIDTH 13.6 % (10.0-14.5); WHITE BLOOD COUNT 7.1 10^3/uL (4.3-11.0)
[2018-07-21 09:17] LABS: ALANINE AMINOTRANSFERASE 26 U/L (0-55); ALBUMIN 4.2 GM/DL (3.2-4.5); ALKALINE PHOSPHATASE 84 U/L (40-136); BILIRUBIN,TOTAL 1.7 MG/DL (0.1-1.0); BUN/CREATININE RATIO 17; CALCIUM 9.5 MG/DL (8.5-10.1); CARBON DIOXIDE 26 MMOL/L (21-32); CHLORIDE 108 MMOL/L (98-107); CREATININE SERUM 0.84 MG/DL (0.60-1.30); GFR ESTIMATED > 60; GLUCOSE 148 MG/DL (70-105); POTASSIUM 3.9 MMOL/L (3.6-5.0); SODIUM 141 MMOL/L (135-145); TOTAL PROTEIN 7.1 GM/DL (6.4-8.2)
== END ==
LOC: EDSTATUS 04-22 08:40 → ONC 08:42
PROVIDERS: ATTEND Internal Medicine Hematology & Oncology
DX: D47.2 Monoclonal gammopathy (principal); D47.3 Essential (hemorrhagic) thrombocythemia; D50.9 Iron deficiency anemia, unspecified; E03.9 Hypothyroidism, unspecified; Z79.899 Other long term (current) drug therapy
CPT/HCPCS: 36415; 80053; 85025

== ENCOUNTER → 2019-01-20 | Outpatient (CLI) | payer OTHER ==
[2019-01-20 09:13] LABS: BASOPHILS # (AUTO) 0.1 10^3/uL (0.0-0.1); BASOPHILS % (AUTO) 1 % (0-10); EOSINOPHILS # (AUTO) 0.4 10^3/uL (0.0-0.3); EOSINOPHILS % (AUTO) 6 % (0-10); HEMATOCRIT 40 % (35-52); HEMOGLOBIN 13.7 G/DL (11.5-16.0); LYMPHOCYTES # (AUTO) 1.9 X 10^3 (1.0-4.0); LYMPHOCYTES % (AUTO) 26 % (12-44); MEAN CORPUSCULAR HEMOGLOBIN 30 PG (25-34); MEAN CORPUSCULAR HGB CONC 35 G/DL (32-36); MEAN CORPUSCULAR VOLUME 86 FL (80-99); MEAN PLATELET VOLUME 9.5 FL (7.4-10.4); MONOCYTES # (AUTO) 0.9 X 10^3 (0.0-1.0); MONOCYTES % (AUTO) 13 % (0-12); NEUTROPHILS # (AUTO) 3.9 X 10^3 (1.8-7.8); NEUTROPHILS % (AUTO) 54 % (42-75); PLATELET COUNT 472 10^3/uL (130-400); RED CELL DISTRIBUTION WIDTH 13.5 % (10.0-14.5); WHITE BLOOD COUNT 7.2 10^3/uL (4.3-11.0)
[2019-01-20 09:38] LABS: ALANINE AMINOTRANSFERASE 24 U/L (0-55); ALBUMIN 4.1 GM/DL (3.2-4.5); ALKALINE PHOSPHATASE 72 U/L (40-136); BILIRUBIN,TOTAL 1.7 MG/DL (0.1-1.0); BUN/CREATININE RATIO 20; CALCIUM 9.4 MG/DL (8.5-10.1); CARBON DIOXIDE 28 MMOL/L (21-32); CHLORIDE 107 MMOL/L (98-107); CREATININE SERUM 0.79 MG/DL (0.60-1.30); GFR ESTIMATED > 60; GLUCOSE 78 MG/DL (70-105); POTASSIUM 3.8 MMOL/L (3.6-5.0); SODIUM 142 MMOL/L (135-145); TOTAL PROTEIN 7.1 GM/DL (6.4-8.2)
== END ==
LOC: ONC 09:00
PROVIDERS: ATTEND Internal Medicine Hematology & Oncology
DX: D47.2 Monoclonal gammopathy (principal); D47.3 Essential (hemorrhagic) thrombocythemia; D50.9 Iron deficiency anemia, unspecified; E03.9 Hypothyroidism, unspecified; Z79.899 Other long term (current) drug therapy
CPT/HCPCS: 36415; 80053; 85025; 99213

== ENCOUNTER 2019-02-06 04:16 | Emergency (ER) | payer OTHER ==
[~2019-02-06] VITALS: Ht 167.7 cm; Wt 97.1 kg
[2019-02-06 04:42] LABS: BILIRUBIN,URINE NEGATIVE (NEGATIVE); CLARITY,URINE CLEAR; COLOR,URINE YELLOW; GLUCOSE, URINE (UA) NEGATIVE (NEGATIVE); KETONES,URINE NEGATIVE (NEGATIVE); LEUKOCYTE ESTERASE ,URINE 3+ (NEGATIVE); NITRITE,URINE NEGATIVE (NEGATIVE); PH,URINE 7 (5-9); PROTEIN,URINE NEGATIVE (NEGATIVE)
[2019-02-06 04:51] LABS: BACTERIA,URINE MODERATE /HPF; SQUAMOUS EPITHELIAL CELL,UR 0-2 /HPF
[2019-02-06] MEDS ORDERED: CEPHALEXIN 250 MG (KEFLEX) CAP PO ONE (06:15)
[2019-02-06] MEDS ORDERED: predniSONE 20 MG TAB PO ONE (06:15)
[2019-02-06] MEDS ORDERED: CYCL10TA9 PO (06:17)
[2019-02-06] MEDS ORDERED: PRD20T PO (06:17)
[2019-02-06] MEDS ORDERED: ACHD5005 PO (06:17)
--- NOTE | 2019-02-06 06:17 | ED Back Pain ---
General Chief Complaint: Back Problems Stated Complaint: LOWER BACK PAIN Nursing Triage Note: INTERMITTANT LEFT LOWER BACK PAIN X4 DAYS. Nursing Sepsis Screen: No Definite Risk Source of Information: Patient Exam Limitations: No Limitations History of Present Illness Date Seen by Provider: Feb 06, 2019 Time Seen by Provider: 04:32 Initial Comments This 54-year-old woman presents to the emergency room with complaints of left lower back pain. It is intermittent and seems to grab her with spasm with certain types of movements. It seemed to start a few days ago and has escalated. She spent a lot of time on her feet yesterday and that worsen the pain. She takes Eliquis so the only medication she has taken for pain as Tylenol. She denies any urinary symptoms but she wonders about urinary tract infection. She also reports riding rides at [employer] about one week ago and thinks that may have triggered the pain. She denies any nausea, vomiting, diarrhea, or fever. She has history of a portal vein thrombosis prompting the use of Eliquis. Allergies and Home Medications Allergies Coded Allergies: No Known Drug Allergies (Unverified , 05/18/12) Home Medications Apixaban 5 Mg Tablet, 5 MG PO BID TAKE 2 TABLETS BID X 7 DAYS, THEN 1 TABLET BID Prescribed by: TRA ALLEN on 10/12/17 09 Cephalexin 500 Mg Capsule, 500 MG PO TID Prescribed by: MC BARRETT on 02/06/19617 Cyclobenzaprine HCl 10 Mg Tablet, 10 MG PO Q8H PRN for SPASMS Prescribed by: MC BARRETT on 02/06/19616 Hydrocodone Bit/Acetaminophen 1 Tab Tab, 1 EACH PO Q4-6HR PRN for PAIN-MODERATE Prescribed by: MC BARRETT on 02/06/19616 Levothyroxine Sodium 50 Mcg Tablet, 50 MCG PO DAILY, (Reported) Prednisone 20 Mg Tab, 20 MG PO DAILY Prescribed by: MC BARRETT on 02/06/19616 Patient Home Medication List Home Medication List Reviewed: Yes Review of Systems Constitutional: no symptoms reported EENTM: no symptoms reported Respiratory: no symptoms reported Cardiovascular: no symptoms reported Gastrointestinal: no symptoms reported Genitourinary: no symptoms reported : No Musculoskeletal: see HPI Skin: no symptoms reported Psychiatric/Neurological: No Symptoms Reported Past Eajeuoz-Ifvzqj-Ummqoh Hx Past Med/Social Hx: Reviewed Nursing Past Med/Soc Hx Patient Social History Alcohol Use: Denies Use Recreational Drug Use: No Smoking Status: Never a Smoker Type Used: Cigarettes 2nd Hand Smoke Exposure: No Recent Foreign Travel: No Contact w/Someone Who Travel: No Recent Infectious Disease Expo: No Recent Hopitalizations: No Physical Abuse: No Sexual Abuse: No Mistreated: No Fear: No Immunizations Up To Date Tetanus Booster (TDap): Unknown Date of Influenza Vaccine: Feb 12, 2012 Seasonal Allergies Seasonal Allergies: No Past Medical History Surgeries: Yes (SPLEENECTOMY) Gallbladder Respiratory: No Cardiac: Yes (portal vein thrombosis) Neurological: Yes (HX:MIGRAINES) : No Reproductive Disorders: No 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 8.0oz. 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 Norm as Tested, Abnormal Cerebellar Tests Skin: Normal Color, Warm/Dry Progress/Results/Core Measures Results/Orders Lab Results Laboratory Tests Test 02/06/19 04:33 Range/Units Urine Color YELLOW Urine Clarity CLEAR Urine pH 7 5-9 Urine Specific [place] 1.010 L 1.016-1.022 Urine Protein NEGATIVE NEGATIVE Urine Glucose (UA) NEGATIVE NEGATIVE Urine Ketones NEGATIVE NEGATIVE Urine Nitrite NEGATIVE NEGATIVE Urine Bilirubin NEGATIVE NEGATIVE Urine Urobilinogen NORMAL NORMAL MG/DL Urine Leukocyte Esterase 3+ H NEGATIVE Urine RBC (Auto) NEGATIVE NEGATIVE Urine RBC NONE /HPF Urine WBC 10-25 H /HPF Urine Squamous Epithelial Cells 0-2 /HPF Urine Crystals NONE /LPF Urine Bacteria MODERATE H /HPF Urine Casts NONE /LPF Urine Mucus NEGATIVE /LPF Urine Culture Indicated YES My Orders Orders - MC CROWDER MD Ua Culture If Indicated (02/06/19 04:32) Urine Culture (02/06/19 04:33) Cephalexin Capsule (Keflex Capsule) (02/06/19 06:15) Prednisone Tablet (Deltasone Tablet) (02/06/19 06:15) Medications Given in ED Current Medications Medications Dose Ordered Sig/Smooth Route Start Time Stop Time Status Last Admin Dose Admin Cephalexin HCl 500 mg ONCE ONCE PO 02/06/19 06:15 02/06/19 06:16 DC 02/06/19 06:23 500 MG Prednisone 40 mg ONCE ONCE PO 02/06/19 06:15 02/06/19 06:16 DC 02/06/19 06:23 40 MG Vital Signs/I&O 02/06/19 02/06/19 04:23 06:25 Temp 36.2 36.2 Pulse 73 66 Resp 18 16 B/P (MAP) 176/96 (122) 150/88 (122) Pulse Ox 99 99 O2 Delivery Room Air Blood Pressure Mean: 122 Progress Progress Note : Progress Note Patient received a dose of prednisone for treatment of her back pain in the ER. Meds were prescribed as well. UTI was identified and Keflex was started. See discharge instructions. Departure Impression Primary Impression: Lower back pain Qualified Codes: M54.5 - Low back pain Additional Impressions: Urinary tract infection Qualified Codes: N39.0 - Urinary tract infection, site not specified Anticoagulated Disposition: 01 HOME, SELF-CARE Condition: Improved Departure-Patient Inst. Decision time for Depature: 06:05 Referrals: TRA ALLEN DO (PCP) Primary Care Physician Patient Instructions: Low Back Pain (DC), Urinary Tract Infections in Adults Add. Discharge Instructions: Drink plenty of clear liquids and complete your antibiotic as prescribed. Start your prednisone prescription on Thursday morning. Take prednisone with food or milk to avoid stomach irritation. You may use Tylenol (acetaminophen) up to 1000 mg every 6 hours as needed. Please be aware that hydrocodone also contains acetaminophen. Keep your total dose of acetaminophen at 1000 mg or less every 6 hours. Use cyclobenzaprine as prescribed for muscle tension. Both hydrocodone and cyclobenzaprine can cause drowsiness. Please use with caution. Gentle heat on your sore areas may also be helpful. Return to care if you have worsening symptoms, especially if you develop numbness in your groin, weakness of your legs, or difficulty with producing or controlling bowel movements or urination. All discharge instructions reviewed with patient and/or family. Voiced understanding. Scripts Cephalexin (Keflex) 500 Mg Capsule 500 MG PO TID, #20 CAP Prov: MC CROWDER MD 02/06/19 Hydrocodone Bit/Acetaminophen (Hydrocodone/Acetaminophen 5/325mg Tablet) 1 Tab Tab 1 EACH PO Q4-6HR PRN for PAIN-MODERATE MDD 10, #10 TAB Prov: MC CROWDER MD 02/06/19 Cyclobenzaprine HCl (Cyclobenzaprine HCl) 10 Mg Tablet 10 MG PO Q8H PRN for SPASMS, #10 TAB 0 Refills Prov: MC CROWDER MD 02/06/19 Prednisone (Prednisone) 20 Mg Tab 20 MG PO DAILY, #4 TAB 0 Refills Prov: MC CROWDER MD 02/06/19 MC CROWDER MD Feb 06, 2019 06:17
[2019-02-06] MEDS ORDERED: CEPH-507 PO (06:18)
[2019-02-06 06:25] VITALS: BP 150/88
== END 2019-02-06 06:24 | disposition home or self-care (01) ==
LOC: EDUNIT# 04:16 → ER 04:18
DX: N39.0 Urinary tract infection, site not specified (principal); G43.909 Migraine, unspecified, not intractable, without status migrainosus; E03.9 Hypothyroidism, unspecified; Z79.01 Long term (current) use of anticoagulants; Z86.718 Personal history of other venous thrombosis and embolism; Z90.81 Acquired absence of spleen
CPT/HCPCS: 81000; 87088; 99283

== ENCOUNTER → 2019-02-15 | Outpatient (CLI) | payer OTHER ==
[~2019-02-15] MED LIST changes: +ACHD5005 PO; +PRD20T PO
--- NOTE | 2019-02-15 10:34 | Diagnostic Imaging Report ---
INDICATION: Screening TECHNIQUE: The current study was also evaluated with a Computer Aided Detection (CAD) system. 3D Tomographic imaging was also performed. 3D tomosynthesis was performed and reviewed. INDICATION: Screening. COMPARISON: 04/28/2017, 09/06/2015, and 06/08/2012. FINDINGS: The fibroglandular tissue is heterogeneously dense bilaterally. There are benign type calcifications. There is no dominant mass, spiculated lesion, or suspicious calcification identified. The skin, nipples, and axillae are unremarkable. IMPRESSION: Benign findings. ACR BI-RADS Category 2: Benign findings. Result letter will be mailed to the patient. Note: At least 10% of breast cancer is not imaged by mammography. Dictated by: Dictated on workstation # [id number]
== END ==
LOC: RAD 07:56
PROVIDERS: ATTEND Internal Medicine
DX: Z12.31 Encounter for screening mammogram for malignant neoplasm of breast (principal)
CPT/HCPCS: 77067

== ENCOUNTER → 2019-08-25 | Outpatient (CLI) | payer OTHER ==
[~2019-08-25] MED LIST changes: -HYDR-3812 PO
[2019-08-25 09:26] LABS: BASOPHILS # (AUTO) 0.1 10^3/uL (0.0-0.1); BASOPHILS % (AUTO) 1 % (0-10); EOSINOPHILS # (AUTO) 0.2 10^3/uL (0.0-0.3); EOSINOPHILS % (AUTO) 3 % (0-10); HEMATOCRIT 40 % (35-52); HEMOGLOBIN 14.2 G/DL (11.5-16.0); LYMPHOCYTES # (AUTO) 1.7 X 10^3 (1.0-4.0); LYMPHOCYTES % (AUTO) 21 % (12-44); MEAN CORPUSCULAR HEMOGLOBIN 30 PG (25-34); MEAN CORPUSCULAR HGB CONC 35 G/DL (32-36); MEAN CORPUSCULAR VOLUME 84 FL (80-99); MEAN PLATELET VOLUME 10.3 FL (7.4-10.4); MONOCYTES % (AUTO) 13 % (0-12); NEUTROPHILS # (AUTO) 4.9 X 10^3 (1.8-7.8); NEUTROPHILS % (AUTO) 62 % (42-75); PLATELET COUNT 483 10^3/uL (130-400); RED CELL DISTRIBUTION WIDTH 14.1 % (10.0-14.5); WHITE BLOOD COUNT 7.9 10^3/uL (4.3-11.0)
[2019-08-25 09:40] LABS: ALANINE AMINOTRANSFERASE 18 U/L (0-55); ALBUMIN 4.3 GM/DL (3.2-4.5); ALKALINE PHOSPHATASE 75 U/L (40-136); BILIRUBIN,TOTAL 1.3 MG/DL (0.1-1.0); BUN/CREATININE RATIO 17; CALCIUM 9.4 MG/DL (8.5-10.1); CARBON DIOXIDE 24 MMOL/L (21-32); CHLORIDE 108 MMOL/L (98-107); CREATININE SERUM 0.82 MG/DL (0.60-1.30); GFR ESTIMATED > 60; GLUCOSE 95 MG/DL (70-105); POTASSIUM 4.3 MMOL/L (3.6-5.0); SODIUM 142 MMOL/L (135-145); TOTAL PROTEIN 7.6 GM/DL (6.4-8.2)
== END ==
LOC: EDSTATUS 08:52 → ONC 08:53
PROVIDERS: ATTEND Internal Medicine Hematology & Oncology
DX: I81 Portal vein thrombosis (principal); D68.51 Activated protein C resistance; D58.0 Hereditary spherocytosis; Z90.81 Acquired absence of spleen; Z79.01 Long term (current) use of anticoagulants
CPT/HCPCS: 80053; 85025; 99213

== ENCOUNTER → 2020-03-22 | Outpatient (CLI) | payer OTHER ==
[~2020-03-22] MED LIST changes: -OXYC-465 PO; +OXYC-556 PO
[2020-03-22 09:01] LABS: BASOPHILS # (AUTO) 0.1 10^3/uL (0.0-0.1); BASOPHILS % (AUTO) 1 % (0-10); EOSINOPHILS # (AUTO) 0.2 10^3/uL (0.0-0.3); EOSINOPHILS % (AUTO) 2 % (0-10); HEMATOCRIT 41 % (35-52); HEMOGLOBIN 13.9 g/dL (11.5-16.0); LYMPHOCYTES # (AUTO) 1.5 10^3/uL (1.0-4.0); LYMPHOCYTES % (AUTO) 22 % (12-44); MEAN CORPUSCULAR HEMOGLOBIN 29 pg (25-34); MEAN CORPUSCULAR HGB CONC 34 g/dL (32-36); MEAN CORPUSCULAR VOLUME 86 fL (80-99); MEAN PLATELET VOLUME 9.2 fL (9.0-12.2); MONOCYTES # (AUTO) 0.8 10^3/uL (0.0-1.0); MONOCYTES % (AUTO) 12 % (0-12); NEUTROPHILS # (AUTO) 4.3 10^3/uL (1.8-7.8); NEUTROPHILS % (AUTO) 63 % (42-75); PLATELET COUNT 504 10^3/uL (130-400); WHITE BLOOD COUNT 6.9 10^3/uL (4.3-11.0)
[2020-03-22 09:25] LABS: ALANINE AMINOTRANSFERASE 22 U/L (0-55); ALBUMIN 4.2 GM/DL (3.2-4.5); ALKALINE PHOSPHATASE 66 U/L (40-136); BILIRUBIN,TOTAL 2.1 MG/DL (0.1-1.0); BUN/CREATININE RATIO 15; CALCIUM 9.1 MG/DL (8.5-10.1); CARBON DIOXIDE 24 MMOL/L (21-32); CHLORIDE 109 MMOL/L (98-107); CHOLESTEROL 182 MG/DL (< 200); CREATININE SERUM 0.74 MG/DL (0.60-1.30); GFR ESTIMATED > 60; GLUCOSE 92 MG/DL (70-105); HDL CHOLESTEROL 70 MG/DL (40-60); POTASSIUM 4.1 MMOL/L (3.6-5.0); SODIUM 141 MMOL/L (135-145); TOTAL PROTEIN 7.4 GM/DL (6.4-8.2); TRIGLYCERIDES 56 MG/DL (<150); VLDL CHOLESTEROL 11 MG/DL (5-40)
[2020-03-22 09:46] LABS: FREE T4 (FREE THYROXINE) 1.16 NG/DL (0.70-1.48)
== END ==
LOC: LAB 08:42
PROVIDERS: ATTEND Internal Medicine
DX: Z00.00 Encounter for general adult medical examination without abnormal findings (principal); E03.9 Hypothyroidism, unspecified; E78.1 Pure hyperglyceridemia; E78.00 Pure hypercholesterolemia, unspecified
CPT/HCPCS: 36415; 80053; 80061; 84439; 84443; 85025

== ENCOUNTER → 2020-04-11 | Outpatient (CLI) | payer OTHER ==
--- NOTE | 2020-04-11 10:45 | Diagnostic Imaging Report ---
INDICATION: Routine screening. Comparison is made with prior mammogram from 02/15/2019 and 04/28/2017. 2-D and 3-D bilateral screening mammography was performed with CAD. Both breasts are heterogeneously dense, limiting the sensitivity of mammography. Circumscribed mass in the upper left breast mid depth approximately 12:00 has increased in size. This may be owing to an enlarging cyst. No spiculated mass or malignant appearing microcalcifications are seen. Axillae are unremarkable. IMPRESSION: BI-RADS 0 Enlarging density in the upper left breast mid to posterior depth approximately 12:00 location, likely an enlarging cyst. Further evaluation with ultrasound is recommended. No other significant abnormality is seen. ACR BI-RADS Category 0: Incomplete. (Needs additional imaging evaluation). Result letter will be mailed to the patient. Note: At least 10% of breast cancer is not imaged by mammography. Dictated by: Dictated on workstation # [id number]
== END ==
LOC: RAD 08:00
PROVIDERS: ATTEND Internal Medicine
DX: Z12.31 Encounter for screening mammogram for malignant neoplasm of breast (principal)
CPT/HCPCS: 77063; 77067

== ENCOUNTER → 2020-04-19 | Outpatient (CLI) | payer OTHER ==
--- NOTE | 2020-04-19 14:45 | Diagnostic Imaging Report ---
INDICATION: Abnormal recent screening mammogram. CORRELATION is made with screening mammogram from 04/11/2020. Sonographic interrogation of the upper left breast was performed. There are numerous cysts present at the 12:30 location,. The largest is 2.1 x 1.2 x 2.1 cm. There is a cyst at the 9:30 location 4 cm from the nipple, the largest approximately 1.5 x 0.6 x 1.8 cm. No solid masses are seen. IMPRESSION: There are numerous cysts in the upper left breast, likely accounting for the mammographic densities. Patient may return to routine annual screening mammography. BI-RADS Category 2 ACR BI-RADS Category 2: Benign findings. Result letter will be mailed to the patient. Note: At least 10% of breast cancer is not imaged by mammography. Dictated by: Dictated on workstation # [id number]
== END ==
LOC: RAD 12:45
PROVIDERS: ATTEND Internal Medicine
DX: N60.02 Solitary cyst of left breast (principal)
CPT/HCPCS: 76642

== ENCOUNTER → 2020-08-14 | Outpatient (CLI) | payer OTHER ==
[2020-08-14 09:08] LABS: BASOPHILS # (AUTO) 0.1 10^3/uL (0.0-0.1); BASOPHILS % (AUTO) 1 % (0-10); EOSINOPHILS # (AUTO) 0.3 10^3/uL (0.0-0.3); EOSINOPHILS % (AUTO) 4 % (0-10); HEMATOCRIT 43 % (35-52); HEMOGLOBIN 14.7 g/dL (11.5-16.0); LYMPHOCYTES # (AUTO) 1.6 10^3/uL (1.0-4.0); LYMPHOCYTES % (AUTO) 21 % (12-44); MEAN CORPUSCULAR HEMOGLOBIN 29 pg (25-34); MEAN CORPUSCULAR HGB CONC 34 g/dL (32-36); MEAN CORPUSCULAR VOLUME 87 fL (80-99); MEAN PLATELET VOLUME 9.9 fL (9.0-12.2); MONOCYTES # (AUTO) 0.9 10^3/uL (0.0-1.0); MONOCYTES % (AUTO) 12 % (0-12); NEUTROPHILS # (AUTO) 4.6 10^3/uL (1.8-7.8); NEUTROPHILS % (AUTO) 61 % (42-75); PLATELET COUNT 328 10^3/uL (130-400); WHITE BLOOD COUNT 7.6 10^3/uL (4.3-11.0)
[2020-08-14 09:32] LABS: ALANINE AMINOTRANSFERASE 20 U/L (0-55); ALBUMIN 4.2 GM/DL (3.2-4.5); ALKALINE PHOSPHATASE 77 U/L (40-136); BILIRUBIN,TOTAL 1.7 MG/DL (0.1-1.0); BUN/CREATININE RATIO 16; CALCIUM 9.1 MG/DL (8.5-10.1); CARBON DIOXIDE 26 MMOL/L (21-32); CHLORIDE 106 MMOL/L (98-107); CREATININE SERUM 0.81 MG/DL (0.60-1.30); GFR ESTIMATED > 60; GLUCOSE 94 MG/DL (70-105); POTASSIUM 3.8 MMOL/L (3.6-5.0); SODIUM 140 MMOL/L (135-145); TOTAL PROTEIN 7.5 GM/DL (6.4-8.2)
== END ==
LOC: ONC 08:55
PROVIDERS: ATTEND Internal Medicine Hematology & Oncology
DX: D68.51 Activated protein C resistance (principal); I81 Portal vein thrombosis; D58.0 Hereditary spherocytosis; Z90.81 Acquired absence of spleen; Z79.01 Long term (current) use of anticoagulants
CPT/HCPCS: 80053; 85025; G0463; 99213

== ENCOUNTER → 2021-05-27 | Outpatient (CLI) | payer OTHER ==
[~2021-05-27] MED LIST changes: +CYCL10TA25 PO; +POTA-160 PO; -POTA10TA6 PO
--- NOTE | 2021-05-30 09:36 | Diagnostic Imaging Report ---
Digital mammogram INDICATION: Bilateral screening This study was compared to the prior exams of 04/11/2020, 02/25/2019 and 04/28/2017. At this time there are no current complaints. The current study was also evaluated with a Computer Aided Detection (CAD) system. 3-D tomosynthesis was also performed and reviewed. The fibroglandular tissue in both breasts is heterogeneously dense. This does limit the sensitivity of this exam. The previous mammogram did note an enlarging density in the upper outer quadrant of the left breast. The subsequent left breast ultrasound of 04/19/2020 revealed numerous cysts in the 12-1 o'clock position of the left breast. The largest of these measure 2.1 x 1.2 x 2.1 cm. On this exam the density seen previously is again evident and does not appear to have changed significantly. The overall appearance of the breast itself is otherwise stable as well. There is no primary or secondary sign of malignancy noted. IMPRESSION: 1. There is evidence for malignancy. 2. The suspected cysts in the left breast seen previously are again evident and not significantly changed. ACR BI-RADS Category 2: Benign findings. Result letter will be mailed to the patient. Note: At least 10% of breast cancer is not imaged by mammography. Dictated by: Dictated on workstation # [id number]
== END ==
LOC: RAD 07:45
PROVIDERS: ATTEND Internal Medicine
DX: Z12.31 Encounter for screening mammogram for malignant neoplasm of breast (principal)
CPT/HCPCS: 77063; 77067

== ENCOUNTER 2021-09-22 19:27 | Inpatient (IN) | payer OTHER ==
[~2021-09-22] VITALS: Ht 168 cm; Wt 97.5 kg
[2021-09-22] MEDS ORDERED: ACETAMINOPHEN 500 MG TAB (TYLENOL) PO ONE (19:45)
[2021-09-22] MEDS ORDERED: NS IV 1000 ML 1,000 ML IV SCH (19:45)
[2021-09-22] MEDS ORDERED: IBUPROFEN 800 MG (MOTRIN) TAB PO ONE (19:45)
--- NOTE | 2021-09-22 19:52 | ED General ---
General Chief Complaint: General Problems/Pain Stated Complaint: FEVER - LETHARGIC - BACK PAIN - NO APPETITE Source of Information: Patient History of Present Illness Date Seen by Provider: Sep 22, 2021 Time Seen by Provider: 19:40 Initial Comments PT ARRIVES VIA POV FROM HOME STATES SHE THINKS SHE GOT OVERHEATED YESTERDAY--MOWED YESTERDAY--TEMP OUTSIDE IN MID 90'S AND VERY HUMID YESTERDAY AND TODAY C/O FEELING LETHARGIC TEMP 101 TODAY, BUT HAD CHILLS ALL NIGHT THURSDAY NIGHT 09/20/21 C/O LOW BACK ACHE C/O NO APPETITE--HAS NOT EATEN OR DRANK ANYTHING TODAY DECREASED URINE OUTPUT NO NAUSEA/VOMITING/DIARRHEA/ABDOMINAL PAIN NO HEADACHE NO COUGH OR URI SYMPTOMS NO CHEST PAIN OR SHORTNESS OF BREATH HAS NOT TAKEN ANYTHING FOR SYMPTOMS AT ANY TIME HAS HAD COVID-19 VACCINES X 3--LAST ONE DEC OR JANUARY 2021. NO FLU VACCINE. PCP; DR. ALLEN Allergies and Home Medications Allergies Coded Allergies: No Known Drug Allergies (Unverified , 05/18/12) Patient Home Medication List Home Medication List Reviewed: Yes Apixaban (Eliquis) 5 Mg Tablet, 5 MG PO BID Prescribed by: TRA ALLEN on 10/12/17 0910 Levothyroxine Sodium (Levothyroxine Sodium) 50 Mcg Tablet, 50 MCG PO DAILY, (Reported) Entered as Reported by: SOPHIA DISLA on 10/08/17 1618 Last Action: Last Taken Edited Discontinued Medications Cephalexin (Keflex) 500 Mg Capsule, 500 MG PO TID Discontinued Reason: No Longer Taking Prescribed by: MC BARRETT on 02/06/19617 Last Action: Discontinued Cyclobenzaprine HCl (Cyclobenzaprine HCl) 10 Mg Tablet, 10 MG PO Q8H PRN for SPASMS Discontinued Reason: No Longer Taking Prescribed by: MC BARRETT on 02/06/19616 Last Action: Discontinued Hydrocodone Bit/Acetaminophen (Lortab 5 Mg Tablet) 1 Tab Tab, 1 EACH PO Q4-6HR PRN for PAIN-MODERATE Discontinued Reason: No Longer Taking Prescribed by: MC BARRETT on 02/06/19616 Last Action: Discontinued Prednisone (Prednisone) 20 Mg Tab, 20 MG PO DAILY Discontinued Reason: No Longer Taking Prescribed by: MC BARRETT on 02/06/19 0617 Last Action: Discontinued Review of Systems Review of Systems Constitutional: see HPI, chills, fever, malaise, weakness EENTM: no symptoms reported Respiratory: no symptoms reported Cardiovascular: no symptoms reported Gastrointestinal: see HPI; No abdominal pain, No constipation, No diarrhea, No nausea, No vomiting Genitourinary: see HPI, decreased output Musculoskeletal: see HPI, back pain Skin: no symptoms reported Psychiatric/Neurological: No Symptoms Reported Hematologic/Lymphatic: No Symptoms Reported Immunological/Allergic: no symptoms reported Past Lnotkxh-Uvkbzb-Hnqwvv Hx Patient Social History Tobacco Use?: No Substance use?: No Alcohol Use?: No Pt feels they are or have been: No Immunizations Up To Date Tetanus Booster (TDap): Unknown First/Initial COVID19 Vaccinat: yes Second COVID19 Vaccination Ferny: yes COVID19 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: [employer] Seasonal Allergies Seasonal Allergies: No Past Medical History Surgery/Hospitalization HX: spleenectomy, cholecystectomy ngo, hypothryoidism, clotting d/o Surgeries: Yes (SPLEENECTOMY) Abdominal, Gallbladder Respiratory: No Cardiac: Yes (portal vein thrombosis) Deep Vein Thrombosis, Hypertension Neurological: Yes (HX:MIGRAINES) Headaches /Migraines Reproductive Disorders: No DIRECTOR OF CRITICAL CARE History: Menopausal Genitourinary: No Gastrointestinal: No Musculoskeletal: No Endocrine: Yes Hypothyroidsim HEENT: No Cancer: No Psychosocial: No Integumentary: No Blood Disorders: Yes (portal vein thrombosis, anticoagulated, SPHE ROCYTOSIS;FACTOR 5 LEIDEN) Adverse Reaction/Blood Tranf: No Family Medical History No Pertinent Family Hx PAST SURGICAL HISTORY: -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 8.0oz. 102.317110pw; 34.00 BMI Method:Stated General Appearance: No Apparent Distress, WD/WN, Other (MILDLY LETHARGIC) HEENT: PERRL/EOMI, Normal ENT Inspection, Pharynx Normal, Other (SLIGHTLY DRY ORAL MUCOSA) Neck: Normal Inspection Respiratory: Normal Breath Sounds, No Accessory Muscle Use, No Respiratory Distress Cardiovascular: No Edema, No JVD, No Murmur, Normal Peripheral Pulses, Tachycardia (110) Gastrointestinal: Normal Bowel Sounds, No Organomegaly, No Pulsatile Mass, Non Tender, Soft Back: Normal Inspection, No CVA Tenderness, No Vertebral Tenderness Extremity: Normal Capillary Refill, Normal Inspection, Normal Range of Motion, Non Tender, No Calf Tenderness, No Pedal Edema Neurologic/Psychiatric: Alert, Oriented x3, No Motor/Sensory Deficits, vulcanizer operator II- XII Norm as Tested Skin: Normal Color, Warm/Dry (VERY WARM) Focused Exam Sepsis Stage: Sepsis Possible Source: Genitouriary Lactate Level 09/22/21 19:54: Lactic Acid Level 0.80 Time of Focused Exam: 21:00 Respiratory: Normal Breath Sounds, No Accessory Muscle Use, No Respiratory Distress Cardiovascular: Regular Rate, Rhythm, No Murmur Capillary Refill: Less Than 3 Seconds Skin: normal color, warm/dry Lactic Acid Level Laboratory Tests Test 09/22/21 19:54 Lactic Acid Level 0.80 MMOL/L (0.50-2.00) Within 3hrs of presentation: Admin fluids, Admin ABX, Blood cultures prior to ABX's, Focus exam, Lactate level Progress/Results/Core Measures Suspected Sepsis SIRS Temperature: Pulse: Respiratory Rate: Laboratory Tests 09/22/21 19:54: White Blood Count 16.7H Blood Pressure / Mean: 09/22/21 19:54: Lactic Acid Level 0.80 Laboratory Tests 09/22/21 19:54: Creatinine 0.75, INR Comment 1.2, Platelet Count 426H, Total Bilirubin 3.5H Results/Orders Lab Results Laboratory Tests Test 09/22/21 19:35 09/22/21 19:45 09/22/21 19:54 Range/Units Urine Color ORANGE Urine Clarity CLEAR Urine pH 7.0 5-9 Urine Specific Banks 1.015 L 1.016-1.022 Urine Protein TRACE H NEGATIVE Urine Glucose (UA) NEGATIVE NEGATIVE Urine Ketones 1+ H NEGATIVE Urine Nitrite POSITIVE H NEGATIVE Urine Bilirubin NEGATIVE NEGATIVE Urine Urobilinogen 1.0 < = 1.0 MG/DL Urine Leukocyte Esterase 1+ H NEGATIVE Urine RBC (Auto) TRACE-I H NEGATIVE Urine RBC 2-5 H /HPF Urine WBC 2-5 /HPF Urine Squamous Epithelial Cells 2-5 /HPF Urine Crystals NONE /LPF Urine Bacteria LARGE H /HPF Urine Casts NONE /LPF Urine Mucus NEGATIVE /LPF Urine Culture Indicated CULTURE PENDING Influenza Type A (RT-PCR) Not Detected Not Detecte Influenza Type B (RT-PCR) Not Detected Not Detecte SARS-CoV-2 RNA (RT-PCR) Not Detected Not Detecte White Blood Count 16.7 H 4.3-11.0 10^3/uL Red Blood Count 4.44 3.80-5.11 10^6/uL Hemoglobin 13.4 11.5-16.0 g/dL Hematocrit 38 35-52 % Mean Corpuscular Volume 86 80-99 fL Mean Corpuscular Hemoglobin 30 25-34 pg Mean Corpuscular Hemoglobin Concent 35 32-36 g/dL Red Cell Distribution Width 12.7 10.0-14.5 % Platelet Count 426 H 130-400 10^3/uL Mean Platelet Volume 9.6 9.0-12.2 fL Immature Granulocyte % (Auto) 1 % Neutrophils (%) (Auto) 78 H 42-75 % Lymphocytes (%) (Auto) 10 L 12-44 % Monocytes (%) (Auto) 12 0-12 % Eosinophils (%) (Auto) 0 0-10 % Basophils (%) (Auto) 0 0-10 % Neutrophils # (Auto) 13.0 H 1.8-7.8 X 10^3 Lymphocytes # (Auto) 1.7 1.0-4.0 X 10^3 Monocytes # (Auto) 1.9 H 0.0-1.0 X 10^3 Eosinophils # (Auto) 0.0 0.0-0.3 10^3/uL Basophils # (Auto) 0.1 0.0-0.1 10^3/uL Immature Granulocyte # (Auto) 0.1 0.0-0.1 10^3/uL Neutrophils % (Manual) 81 % Lymphocytes % (Manual) 9 % Monocytes % (Manual) 10 % Smudge Cells SLIGHT Platelet Estimate GIANTS SEEN Clumped Platelets NONE SEEN Polychromasia SLIGHT Anisocytosis SLIGHT Microcytosis SLIGHT Erythrocyte Sedimentation Rate 13 0-30 MM/HR Prothrombin Time 15.2 H 12.2-14.7 SEC INR Comment 1.2 0.8-1.4 Activated Partial Thromboplast Time 33 24-35 SEC D-Dimer 0.40 0.00-0.49 UG/ML Sodium Level 136 135-145 MMOL/L Potassium Level 3.8 3.6-5.0 MMOL/L Chloride Level 103 98-107 MMOL/L Carbon Dioxide Level 20 L 21-32 MMOL/L Anion Gap 13 5-14 MMOL/L Blood Urea Nitrogen 13 7-18 MG/DL Creatinine 0.75 0.60-1.30 MG/DL Estimat Glomerular Filtration Rate 93 BUN/Creatinine Ratio 17 Glucose Level 98 70-105 MG/DL Lactic Acid Level 0.80 0.50-2.00 MMOL/L Calcium Level 8.9 8.5-10.1 MG/DL Corrected Calcium 9.0 8.5-10.1 MG/DL Magnesium Level 2.0 1.6-2.4 MG/DL Total Bilirubin 3.5 H 0.1-1.0 MG/DL Aspartate Amino Transf (AST/SGOT) 34 5-34 U/L Alanine Aminotransferase (ALT/SGPT) 33 0-55 U/L Alkaline Phosphatase 64 40-136 U/L Lactate Dehydrogenase 268 H 125-220 U/L C-Reactive Protein High Sensitivity 2.99 H 0.00-0.50 MG/DL Total Protein 7.2 6.4-8.2 GM/DL Albumin 3.9 3.2-4.5 GM/DL Amylase Level 41 25-125 U/L Lipase 28 8-78 U/L Procalcitonin 0.30 H <0.10 NG/ML My Orders Orders - DON PEDRO DO Ed Iv/Invasive Line Start (09/22/21 19:40) Monitor-Rhythm Ecg Trace Only (09/22/21 19:40) Amylase (09/22/21 19:40) Cbc With Automated Diff (09/22/21 19:40) Comprehensive Metabolic Panel (09/22/21 19:40) Lactic Acid Analyzer (09/22/21 19:40) Lipase (09/22/21 19:40) Magnesium (09/22/21 19:40) Procalcitonin (Pct) (09/22/21 19:40) Ua Culture If Indicated (09/22/21 19:40) Blood Culture (09/22/21 19:40) Ed Iv/Invasive Line Start (09/22/21 19:40) Ns Iv 1000 Ml (Sodium Chloride 0.9%) (09/22/21 19:45) Hs C Reactive Protein (09/22/21 19:40) Erythrocyte Sedimentation Rate (09/22/21 19:40) LDH (09/22/21 19:40) Chest 1 View, Ap/Pa Only (09/22/21 19:40) Covid 19 Inhouse Test (09/22/21 19:40) Urine Culture (09/22/21 19:40) Ed Iv/Invasive Line Start (09/22/21 19:40) Ed Iv/Invasive Line Start (09/22/21 19:40) Vital Signs Adult Sepsis Patie Q15M (09/22/21 19:40) O2 (09/22/21 19:40) Remove Rings In Anticipation O (09/22/21 19:40) Influenza A And B By Pcr (09/22/21 19:40) Isolation Central Supply Req (09/22/21 19:40) Acetaminophen Tablet (Tylenol Tablet) (09/22/21 19:45) Ibuprofen Tablet (Motrin Tablet) (09/22/21 19:45) Manual Differential (09/22/21 19:54) Protime With Inr (09/22/21 20:32) Partial Thromboplastin Time (09/22/21 20:32) Ceftriaxone 1 Gm Pre-Mix (Rocephin 1 Gm (09/22/21 20:33) Fibrin Degradation Products (09/22/21 19:54) Ed Admission (Communication) (09/22/21 21:21) Medications Given in ED Current Medications Medications Dose Ordered Sig/Smooth Route Start Time Stop Time Status Last Admin Dose Admin Acetaminophen 1,000 mg ONCE ONCE PO 09/22/21 19:45 09/22/21 19:46 DC 09/22/21 20:00 1,000 MG Ibuprofen 800 mg ONCE ONCE PO 09/22/21 19:45 09/22/21 19:46 DC 09/22/21 20:01 800 MG Vital Signs/I&O 09/22/21 09/22/21 09/22/21 09/22/21 19:33 20:00 20:01 20:50 Temp 39.1 39.1 39.1 37.0 Pulse 110 93 Resp 16 16 B/P (MAP) 170/93 (118) 163/95 Pulse Ox 95 95 O2 Delivery Room Air Room Air 09/23/21 00:00 Intake Total 1050 ml Balance 1050 ml Capillary Refill : Progress Note : Progress Note SEPSIS PROTOCOL INITIATED COVID AND FLU TESTING DONE TEMP 39.1=102.4 ON ARRIVAL GIVEN IV FLUIDS, TYLENOL AND MOTRIN WITH IMPROVEMENT IN SYMPTOMS Diagnostic Imaging Comments CXR--PER RADIOLOGIST REPORT AT 2053 FINDINGS: Normal heart size and pulmonary vascularity. No dense consolidation, pleural effusion or pneumothorax. No acute osseous finding. No significant change. IMPRESSION: No acute cardiopulmonary finding. Reviewed: Reviewed by Me Departure Communication (Admissions) 2117--SPOKE WITH DR. ALLEN, ACCEPTS PT FOR ADMIT. SHE WILL DO ADMIT ORDERS Impression Primary Impression: Sepsis Additional Impressions: UTI (urinary tract infection) Dehydration Disposition: ADMITTED INPATIENT Condition: Stable Admissions Decision to Admit Reason: Admit from ER (General) Decision to Admit/Date: Sep 22, 2021 Time/Decision to Admit Time: 21:20 Departure-Patient Inst. Referrals: TRA ALLEN DO (PCP/Family) Primary Care Physician DON PEDRO DO Sep 22, 2021 19:52
[2021-09-22 20:24] LABS: HEMATOCRIT 38 % (35-52); HEMOGLOBIN 13.4 g/dL (11.5-16.0); MEAN CORPUSCULAR HEMOGLOBIN 30 pg (25-34); WHITE BLOOD COUNT 16.7 10^3/uL (4.3-11.0)
[2021-09-22 20:25] LABS: BASOPHILS % (AUTO) 0 % (0-10); EOSINOPHILS % (AUTO) 0 % (0-10); LYMPHOCYTES # (AUTO) 1.7 X 10^3 (1.0-4.0); LYMPHOCYTES % (AUTO) 10 % (12-44); MEAN CORPUSCULAR HGB CONC 35 g/dL (32-36); MEAN CORPUSCULAR VOLUME 86 fL (80-99); MEAN PLATELET VOLUME 9.6 fL (9.0-12.2); MONOCYTES # (AUTO) 1.9 X 10^3 (0.0-1.0); MONOCYTES % (AUTO) 12 % (0-12); NEUTROPHILS % (AUTO) 78 % (42-75); PLATELET COUNT 426 10^3/uL (130-400)
[2021-09-22 20:26] LABS: BASOPHILS # (AUTO) 0.1 10^3/uL (0.0-0.1)
[2021-09-22 20:28] LABS: CLARITY,URINE CLEAR; COLOR,URINE ORANGE
[2021-09-22 20:29] LABS: BACTERIA,URINE LARGE /HPF; BILIRUBIN,URINE NEGATIVE (NEGATIVE); GLUCOSE, URINE (UA) NEGATIVE (NEGATIVE); KETONES,URINE 1+ (NEGATIVE); LEUKOCYTE ESTERASE ,URINE 1+ (NEGATIVE); NITRITE,URINE POSITIVE (NEGATIVE); PROTEIN,URINE TRACE (NEGATIVE)
[2021-09-22] MEDS ORDERED: cefTRIAXone 1 GM PRE-MIX 50 ML IV STA (20:33)
[2021-09-22 20:37] LABS: LYMPHOCYTES % (MANUAL) 9 %; MONOCYTES % (MANUAL) 10 %; NEUTROPHILS % (MANUAL) 81 %
[2021-09-22 20:38] LABS: ANISOCYTOSIS SLIGHT; ERYTHROCYTE SEDIMENTATION RATE 13 MM/HR (0-30); MICROCYTOSIS SLIGHT; PLATELET CLUMPS NONE SEEN; PLATELET ESTIMATE GIANTS SEEN; POLYCHROMASIA SLIGHT
--- NOTE | 2021-09-22 20:48 | Diagnostic Imaging Report ---
EXAM: Chest 1 view, AP/PA only INDICATION: Fever. COMPARISON: 05/18/2014. FINDINGS: Normal heart size and pulmonary vascularity. No dense consolidation, pleural effusion or pneumothorax. No acute osseous finding. No significant change. IMPRESSION: No acute cardiopulmonary finding. Dictated by: Dictated on workstation # [id number]
[2021-09-22 21:02] LABS: POTASSIUM 3.8 MMOL/L (3.6-5.0)
[2021-09-22 21:04] LABS: BILIRUBIN,TOTAL 3.5 MG/DL (0.1-1.0); CALCIUM 8.9 MG/DL (8.5-10.1); CREATININE SERUM 0.75 MG/DL (0.60-1.30)
[2021-09-22 21:05] LABS: ALBUMIN 3.9 GM/DL (3.2-4.5); TOTAL PROTEIN 7.2 GM/DL (6.4-8.2)
[2021-09-22 21:14] LABS: FIBRIN DEGRADATION PRODUCTS 0.4 UG/ML (0.00-0.49); INR 1.2 (0.8-1.4); PROTHROMBIN TIME PATIENT 15.2 SEC (12.2-14.7)
[2021-09-22 22:13] VITALS: BP 157/79
[2021-09-22] MEDS ORDERED: ONDANSETRON 4 MG/2 ML (SDV) Z0FRAN IV PRN (22:15)
[2021-09-22] MEDS ORDERED: polyethylene glycoL POWDER 17 GM (MIRALAX) PACK PO PRN (22:15)
[2021-09-22] MEDS ORDERED: LACTULOSE SYRUP 10GM/15ML (ENULOSE) 30ML UDC PO PRN (22:15)
[2021-09-22] MEDS ORDERED: ACETAMINOPHEN 325 MG TABLET PO PRN (22:15)
[2021-09-22] MEDS ORDERED: BISACODYL 10 MG SUPP (DULCOLAX) PR PRN (22:15)
[2021-09-22] MEDS ORDERED: MELATONIN 3 MG TABLET PO PRN (22:15)
[2021-09-22] MEDS ORDERED: MILK OF MAGNESIA 400 MG/5 ML 30 ML UDC PO PRN (22:15)
[2021-09-22] MEDS ORDERED: ALPRAZolam 0.25 MG (XANAX) TAB PO PRN (22:15)
[2021-09-22] MEDS ORDERED: CALCIUM CARBONATE 500 MG (TUMS) TAB.CHEW PO PRN (22:15)
[2021-09-22] MEDS ORDERED: diphenhydrAMINE 25 MG TAB (BENADRYL) PO PRN (22:15)
[2021-09-22] MEDS ORDERED: ANTACID SUSP 30 ML UDC (MYLANTA) PO PRN (22:15)
[2021-09-22] MEDS ORDERED: morphine INJ 4 MG/ML 1 ML (VIAL/SYRINGE) IV PRN (22:15)
[2021-09-22] MEDS ORDERED: diphenhydrAMINE 50 MG/ML INJ (BENADRYL) IVP PRN (22:15)
[2021-09-22] MEDS ORDERED: ONDANSETRON 4 MG (ZOFRAN) ORAL DISSOLVE TAB PO PRN (22:15)
[2021-09-22] MEDS ORDERED: NS IV 1000 ML 1,000 ML ONE (22:16)
[2021-09-22] MEDS: NS IV 1000 ML 1,000 ML IV SCH (22:18)
[2021-09-22 23:07] VITALS: BP 157/79
[2021-09-22] MEDS ORDERED: RT-ALBUTEROL/IPRATROPIUM 3 ML (DUONEB) VIAL INH PRN (23:15)
[2021-09-23 00:10] VITALS: BP 120/60
[2021-09-23 04:02] VITALS: BP 123/61
--- NOTE | 2021-09-23 06:01 | History & Physical ---
History of Present Illness HPI/Chief Complaint CC: Sepsis from UTI HPI: This is a 56 yr old female clinic pt of mine. She presents to the ER with profound dehydration and was found to be septic after she mowed her mother's lawn. Rocephin was initiated after kelly cultured. IV fluids initiated. Currently she is doing better. [place] [address] [place] [address]. We will discontinue telemetry and ambulate. Source: patient Date Seen 09/23/21 Time Seen by a Provider: 09:00 Attending Physician Lindsay Robison DO PCP Admitting Physician: Lindsay Robison DO Attending Physician: Lindsay Robison DO Referring Physician Date of Admission Sep 22, 2021 at 21:21 Home Medications & Allergies Home Medications Reviewed patient Home Medication Reconciliation performed by pharmacy medication reconciliations optical fabrication technician and/or nursing. Patients Allergies have been reviewed. Allergies Allergies Coded Allergies No Known Drug Allergies (Unverified05/18/12) Past Dtueyum-Ypffwr-Gnqbrs Hx Past Med/Social Hx: Reviewed Nursing Past Med/Soc Hx, Reviewed and Corrections made Patient Social History Marrital Status: Employed/Student: employed Alcohol Use: Denies Use Smoking Status: Never a Smoker Type Used: Cigarettes 2nd Hand Smoke Exposure: No Recent Foreign Travel: No Contact w/other who traveled: No Recent Hopitalizations: No Immunizations Up To Date Tetanus Booster (TDap): Unknown Date of Influenza Vaccine: Feb 12, 2012 Seasonal Allergies Seasonal Allergies: No Past Medical History Surgeries: Abdominal, Gallbladder Cardiac: Deep Vein Thrombosis, Hypertension Neurological: Headaches /Migraines Reproductive: No Menopausal Endocrine: Hypothyroidsim History of Blood Disorders: Yes (portal vein thrombosis, anticoagulated, SPHEROCYTOSIS;FACTOR 5 LEIDEN) Adverse Reaction to Blood Aleman: No Family History No Pertinent Family Hx PAST SURGICAL HISTORY: -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 -CHOLECYSTECTOMY Review of Systems Constitutional: see HPI, chills, dizziness, fever, malaise, weakness EENTM: no symptoms reported Respiratory: no symptoms reported Cardiovascular: no symptoms reported Gastrointestinal: nausea, vomiting Genitourinary: no symptoms reported Musculoskeletal: no symptoms reported Skin: no symptoms reported Psychiatric/Neurological: No Symptoms Reported All Other Systems Reviewed Negative Unless Noted: Yes Physical Exam Physical Exam Vital Signs Vital Signs - First Documented 09/22/21 19:33 Temp 39.1 Pulse 110 Resp 16 B/P (MAP) 170/93 (118) Pulse Ox 95 O2 Delivery Room Air Capillary Refill : Less Than 3 Seconds Height, Weight, BMI Height: 5'6.00" Weight: 226lbs. 8.0oz. 102.415964tt; 34.54 BMI Method:Stated General Appearance: No Apparent Distress, WD/WN, Other (MILDLY LETHARGIC) HEENT: PERRL/EOMI, Normal ENT Inspection, Pharynx Normal, Other (SLIGHTLY DRY ORAL MUCOSA) Neck: Normal Inspection Respiratory: Lungs Clear, Normal Breath Sounds, No Accessory Muscle Use, No Respiratory Distress Cardiovascular: Regular Rate, Rhythm, No Murmur Gastrointestinal: Normal Bowel Sounds, No Organomegaly, No Pulsatile Mass, Non Tender, Soft Back: Normal Inspection, No CVA Tenderness, No Vertebral Tenderness Extremity: Normal Capillary Refill, Normal Inspection, Normal Range of Motion, Non Tender, No Calf Tenderness, No Pedal Edema Neurologic/Psychiatric: Alert, Oriented x3, No Motor/Sensory Deficits, lyft driver II- XII Norm as Tested Skin: Normal Color, Warm/Dry (VERY WARM) Results Results/Procedures Labs Laboratory Tests 09/22/21 19:54 09/23/21 07:17 09/24/21 05:31 Patient resulted labs reviewed. 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
[2021-09-23] MEDS: LEVOTHYROXINE 50 MCG (LEVOTHROID) TAB PO SCH (06:07)
[2021-09-23] MEDS: NS IV 1000 ML 1,000 ML IV SCH ×3 (06:07→21:47)
[2021-09-23 07:27] LABS: BASOPHILS # (AUTO) 0.1 10^3/uL (0.0-0.1); BASOPHILS % (AUTO) 0 % (0-10); EOSINOPHILS # (AUTO) 0.1 10^3/uL (0.0-0.3); EOSINOPHILS % (AUTO) 1 % (0-10); HEMATOCRIT 36 % (35-52); HEMOGLOBIN 12.5 g/dL (11.5-16.0); LYMPHOCYTES % (AUTO) 7 % (12-44); MEAN CORPUSCULAR HEMOGLOBIN 30 pg (25-34); MEAN CORPUSCULAR HGB CONC 35 g/dL (32-36); MEAN CORPUSCULAR VOLUME 87 fL (80-99); MEAN PLATELET VOLUME 9.5 fL (9.0-12.2); MONOCYTES # (AUTO) 1.8 10^3/uL (0.0-1.0); MONOCYTES % (AUTO) 13 % (0-12); NEUTROPHILS # (AUTO) 11.1 10^3/uL (1.8-7.8); NEUTROPHILS % (AUTO) 79 % (42-75); PLATELET COUNT 373 10^3/uL (130-400); WHITE BLOOD COUNT 14.1 10^3/uL (4.3-11.0)
[2021-09-23 07:42] LABS: ALBUMIN 3.5 GM/DL (3.2-4.5); BILIRUBIN,TOTAL 3.2 MG/DL (0.1-1.0); CALCIUM 8.5 MG/DL (8.5-10.1); CREATININE SERUM 0.68 MG/DL (0.60-1.30); POTASSIUM 3.7 MMOL/L (3.6-5.0); TOTAL PROTEIN 6.4 GM/DL (6.4-8.2)
[2021-09-23 08:18] VITALS: BP 162/77
[2021-09-23] MEDS: PANTOPRAZOLE 40 MG (PROTONIX) TAB PO SCH (09:14)
[2021-09-23] MEDS: APIXABAN 5 MG (ELIQUIS) TABLET PO SCH ×2 (09:14→20:48)
[2021-09-23] MEDS: DOCUSATE SODIUM 100 MG (COLACE) CAP PO SCH ×2 (09:14→20:48)
[2021-09-23] MEDS: SENNOSIDES 8.6 MG (SENOKOT) TAB PO SCH ×2 (09:16→20:48)
[2021-09-23 12:24] VITALS: BP 170/90
[2021-09-23] MEDS ORDERED: APIX2.5T PO (14:19)
[2021-09-23] MEDS ORDERED: ACET-2267 PO (14:20)
[2021-09-23] MEDS: IBUPROFEN TABLET 200 MG TAB PO PRN (15:44)
[2021-09-23 15:49] VITALS: BP 190/93
[2021-09-23 19:47] VITALS: BP 172/86
[2021-09-23] MEDS ORDERED: cefTRIAXone 1 GM PRE-MIX 50 ML IV SCH (21:00)
[2021-09-24 00:12] VITALS: BP 158/89
[2021-09-24 04:00] VITALS: BP 175/89
[2021-09-24] MEDS: IBUPROFEN TABLET 200 MG TAB PO PRN (04:32)
[2021-09-24] MEDS: NS IV 1000 ML 1,000 ML IV SCH (05:55)
[2021-09-24 06:13] LABS: BASOPHILS # (AUTO) 0.1 10^3/uL (0.0-0.1); BASOPHILS % (AUTO) 1 % (0-10); EOSINOPHILS # (AUTO) 0.1 10^3/uL (0.0-0.3); EOSINOPHILS % (AUTO) 1 % (0-10); HEMATOCRIT 33 % (35-52); HEMOGLOBIN 11.9 g/dL (11.5-16.0); LYMPHOCYTES # (AUTO) 0.9 10^3/uL (1.0-4.0); LYMPHOCYTES % (AUTO) 9 % (12-44); MEAN CORPUSCULAR HEMOGLOBIN 30 pg (25-34); MEAN CORPUSCULAR HGB CONC 36 g/dL (32-36); MEAN CORPUSCULAR VOLUME 85 fL (80-99); MEAN PLATELET VOLUME 10.3 fL (9.0-12.2); MONOCYTES # (AUTO) 1.2 10^3/uL (0.0-1.0); MONOCYTES % (AUTO) 12 % (0-12); NEUTROPHILS % (AUTO) 77 % (42-75); PLATELET COUNT 399 10^3/uL (130-400); WHITE BLOOD COUNT 10.4 10^3/uL (4.3-11.0)
[2021-09-24] MEDS: LEVOTHYROXINE 50 MCG (LEVOTHROID) TAB PO SCH (06:17)
[2021-09-24 06:33] LABS: ALBUMIN 3.3 GM/DL (3.2-4.5); POTASSIUM 3.6 MMOL/L (3.6-5.0)
[2021-09-24 06:34] LABS: CALCIUM 8.2 MG/DL (8.5-10.1)
[2021-09-24 06:37] LABS: BILIRUBIN,TOTAL 1.4 MG/DL (0.1-1.0)
[2021-09-24 06:39] LABS: CREATININE SERUM 0.62 MG/DL (0.60-1.30)
[2021-09-24 08:22] VITALS: BP 163/80
[2021-09-24] MEDS: APIXABAN 5 MG (ELIQUIS) TABLET PO SCH (09:23)
[2021-09-24] MEDS: PANTOPRAZOLE 40 MG (PROTONIX) TAB PO SCH (09:23)
[2021-09-24] MEDS: SENNOSIDES 8.6 MG (SENOKOT) TAB PO SCH (09:42)
[2021-09-24] MEDS: DOCUSATE SODIUM 100 MG (COLACE) CAP PO SCH (09:42)
[2021-09-24] MEDS ORDERED: CEFD300C3 PO (10:21)
--- NOTE | 2021-09-24 10:22 | Discharge Summary ---
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 lifetime Plan: Rocephin IV fluids Supportive care Ambulate DC telemetry Discharge Summary Discharge Physical Examination Allergies: Coded Allergies: No Known Drug Allergies (Unverified , 05/18/12) Vitals & I&Os Vital Signs Date Time Temp Pulse Resp B/P (MAP) Pulse Ox O2 Delivery O2 Flow Rate FiO2 09/24/21 12:15 37.1 79 18 173/96 96 Room Air General Appearance: Alert, Oriented X3, Cooperative Respiratory: Clear to Auscultation Cardiovascular: Regular Rate Neuro: Normal Gait, Normal Speech, Strength at 5/5 X4 Ext Psych/Mental Status: Mental Status NL Hospital Course Was the Problem List Reviewed?: Yes Pt had an uneventful short hospital course after she was admitted for sepsis from pyelonephritis, leukocytosis, and profound dehydration with heat exposure. She was given IV fluids and IV Rocephin. E. Coli showed sensitivity to Rocephin. She was transitioned to Omnicef 300 mg BID. While she was hospitalized I did in crease her Eliquis from 2.5 mg BID to 5 mg BID for additional DVT prophylaxis. She will resume 2.5 mg BID. Labs (last 24 hrs) Laboratory Tests 09/22/21 19:35: Urine Color ORANGE, Urine Clarity CLEAR, Urine pH 7.0, Urine Specific [place] 1.015L, Urine Protein TRACEH, Urine Glucose (UA) NEGATIVE, Urine Ketones 1+H, Urine Nitrite POSITIVEH, Urine Bilirubin NEGATIVE, Urine Urobilinogen 1.0, Urine Leukocyte Esterase 1+H, Urine RBC (Auto) TRACE-IH, Urine RBC 2-5H, Urine WBC 2- 5, Urine Squamous Epithelial Cells 2-5, Urine Crystals NONE, Urine Bacteria LARGEH, Urine Casts NONE, Urine Mucus NEGATIVE, Urine Culture Indicated CULTURE PENDING 09/22/21 19:45: Influenza Type A (RT-PCR) Not Detected, Influenza Type B (RT-PCR) Not Detected, SARS-CoV-2 RNA (RT-PCR) Not Detected 09/22/21 19:54: White Blood Count 16.7H, Red Blood Count 4.44, Hemoglobin 13.4, Hematocrit 38, Mean Corpuscular Volume 86, Mean Corpuscular Hemoglobin 30, Mean Corpuscular Hemoglobin Concent 35, Red Cell Distribution Width 12.7, Platelet Count 426H, Mean Platelet Volume 9.6, Immature Granulocyte % (Auto) 1, Neutrophils (%) (Auto) 78H, Lymphocytes (%) (Auto) 10L, Monocytes (%) (Auto) 12, Eosinophils (%) (Auto) 0, Basophils (%) (Auto) 0, Neutrophils # (Auto) 13.0H, Lymphocytes # (Auto) 1.7, Monocytes # (Auto) 1.9H, Eosinophils # (Auto) 0.0, Basophils # (Auto) 0.1, Immature Granulocyte # (Auto) 0.1, Neutrophils % (Manual) 81, Lymphocytes % (Manual) 9, Monocytes % (Manual) 10, Smudge Cells SLIGHT, Platelet Estimate GIANTS SEEN, Clumped Platelets NONE SEEN, Polychromasia SLIGHT, Anisocytosis SLIGHT, Microcytosis SLIGHT, Erythrocyte Sedimentation Rate 13, Prothrombin Time 15.2H, INR Comment 1.2, Activated Partial Thromboplast Time 33, D-Dimer 0.40, Sodium Level 136, Potassium Level 3.8, Chloride Level 103, Carbon Dioxide Level 20L, Anion Gap 13, Blood Urea Nitrogen 13, Creatinine 0.75, Estimat Glomerular Filtration Rate 93, BUN/Creatinine Ratio 17, Glucose Level 98, Lactic Acid Level 0.80, Calcium Level 8.9, Corrected Calcium 9.0, Magnesium Level 2.0, Total Bilirubin 3.5H, Aspartate Amino Transf (AST/SGOT) 34, Alanine Aminotransferase (ALT/SGPT) 33, Alkaline Phosphatase 64, Lactate Dehydrogenase 268H, C-Reactive Protein High Sensitivity 2.99H, Total Protein 7.2, Albumin 3.9, Amylase Level 41, Lipase 28, Procalcitonin 0.30H 09/23/21 07:17: White Blood Count 14.1H, Red Blood Count 4.15, Hemoglobin 12.5, Hematocrit 36, Mean Corpuscular Volume 87, Mean Corpuscular Hemoglobin 30, Mean Corpuscular Hemoglobin Concent 35, Red Cell Distribution Width 12.7, Platelet Count 373, Mean Platelet Volume 9.5, Immature Granulocyte % (Auto) 0, Neutrophils (%) (Auto) 79H, Lymphocytes (%) (Auto) 7L, Monocytes (%) (Auto) 13H, Eosinophils (%) (Auto) 1, Basophils (%) (Auto) 0, Neutrophils # (Auto) 11.1H, Lymphocytes # (Auto) 1.0, Monocytes # (Auto) 1.8H, Eosinophils # (Auto) 0.1, Basophils # (Auto) 0.1, Immature Granulocyte # (Auto) 0.1, Sodium Level 142, Potassium Level 3.7, Chloride Level 110H, Carbon Dioxide Level 19L, Anion Gap 13, Blood Urea Nitrogen 11, Creatinine 0.68, Estimat Glomerular Filtration Rate 102, BUN/ Creatinine Ratio 16, Glucose Level 93, Calcium Level 8.5, Corrected Calcium 8.9, Total Bilirubin 3.2H, Aspartate Amino Transf (AST/SGOT) 41H, Alanine Aminotransferase (ALT/SGPT) 39, Alkaline Phosphatase 60, Total Protein 6.4, Albumin 3.5 09/24/21 05:31: White Blood Count 10.4, Red Blood Count 3.92, Hemoglobin 11.9, Hematocrit 33L, Mean Corpuscular Volume 85, Mean Corpuscular Hemoglobin 30, Mean Corpuscular Hemoglobin Concent 36, Red Cell Distribution Width 12.9, Platelet Count 399, Mean Platelet Volume 10.3, Immature Granulocyte % (Auto) 0, Neutrophils (%) (Auto) 77H, Lymphocytes (%) (Auto) 9L, Monocytes (%) (Auto) 12, Eosinophils (%) (Auto) 1, Basophils (%) (Auto) 1, Neutrophils # (Auto) 8.0H, Lymphocytes # (Auto) 0.9L, Monocytes # (Auto) 1.2H, Eosinophils # (Auto) 0.1, Basophils # (Auto) 0.1, Immature Granulocyte # (Auto) 0.0, Sodium Level 138, Potassium Level 3.6, Chloride Level 107, Carbon Dioxide Level 22, Anion Gap 9, Blood Urea Nitrogen 8, Creatinine 0.62, Estimat Glomerular Filtration Rate 104, BUN/Creatinine Ratio 13, Glucose Level 88, Calcium Level 8.2L, Corrected Calcium 8.8, Total Bilirubin 1.4H, Aspartate Amino Transf (AST/SGOT) 41H, Alanine Aminotransferase (ALT/SGPT) 43, Alkaline Phosphatase 68, Total Protein 6.0L, Albumin 3.3 Microbiology 09/22/21 Blood Culture - Preliminary, Resulted No growth 09/22/21 Urine Culture - Final, Complete Escherichia coli Pending Labs Microbiology Date/Time Source Procedure Growth Status 09/22/21 20:55 Peripheral Rt Hand Blood Culture - Preliminary No growth Resulted 09/22/21 19:54 Peripheral Left Forearm Blood Culture - Preliminary No growth Resulted 09/22/21 19:35 Urine Clean Catch Urine Culture - Final Escherichia coli Complete Laboratory Tests 09/22/21 19:35: Urine Color ORANGE, Urine Clarity CLEAR, Urine pH 7.0, Urine Specific [place] 1.015, Urine Protein TRACE, Urine Glucose (UA) NEGATIVE, Urine Ketones 1+, Urine Nitrite POSITIVE, Urine Bilirubin NEGATIVE, Urine Urobilinogen 1.0, Urine Leukocyte Esterase 1+, Urine RBC (Auto) TRACE-I, Urine RBC 2-5, Urine WBC 2-5, Urine Squamous Epithelial Cells 2-5, Urine Crystals NONE, Urine Bacteria LARGE, Urine Casts NONE, Urine Mucus NEGATIVE, Urine Culture Indicated CULTURE PENDING 09/22/21 19:45: Influenza Type A (RT-PCR) Not Detected, Influenza Type B (RT-PCR) Not Detected, SARS-CoV-2 RNA (RT-PCR) Not Detected 09/22/21 19:54: White Blood Count 16.7, Red Blood Count 4.44, Hemoglobin 13.4, Hematocrit 38, Mean Corpuscular Volume 86, Mean Corpuscular Hemoglobin 30, Mean Corpuscular Hemoglobin Concent 35, Red Cell Distribution Width 12.7, Platelet Count 426, Mean Platelet Volume 9.6, Immature Granulocyte % (Auto) 1, Neutrophils (%) (Auto) 78, Lymphocytes (%) (Auto) 10, Monocytes (%) (Auto) 12, Eosinophils (%) (Auto) 0, Basophils (%) (Auto) 0, Neutrophils # (Auto) 13.0, Lymphocytes # (Auto) 1.7, Monocytes # (Auto) 1.9, Eosinophils # (Auto) 0.0, Basophils # (Auto) 0.1, Immature Granulocyte # (Auto) 0.1, Neutrophils % (Manual) 81, Lymphocytes % (Manual) 9, Monocytes % (Manual) 10, Smudge Cells SLIGHT, Platelet Estimate GIANTS SEEN, Clumped Platelets NONE SEEN, Polychromasia SLIGHT, Anisocytosis SLIGHT, Microcytosis SLIGHT, Erythrocyte Sedimentation Rate 13, Prothrombin Time 15.2, INR Comment 1.2, Activated Partial Thromboplast Time 33, D-Dimer 0.40, Sodium Level 136, Potassium Level 3.8, Chloride Level 103, Carbon Dioxide Level 20, Anion Gap 13, Blood Urea Nitrogen 13, Creatinine 0.75, Estimat Glomerular Filtration Rate 93, BUN/Creatinine Ratio 17, Glucose Level 98, Lactic Acid Level 0.80, Calcium Level 8.9, Corrected Calcium 9.0, Magnesium Level 2.0, Total Bilirubin 3.5, Aspartate Amino Transf (AST/SGOT) 34, Alanine Aminotransferase (ALT/SGPT) 33, Alkaline Phosphatase 64, Lactate Dehydrogenase 268, C-Reactive Protein High Sensitivity 2.99, Total Protein 7.2, Albumin 3.9, Amylase Level 41, Lipase 28, Procalcitonin 0.30 09/23/21 07:17: White Blood Count 14.1, Red Blood Count 4.15, Hemoglobin 12.5, Hematocrit 36, Mean Corpuscular Volume 87, Mean Corpuscular Hemoglobin 30, Mean Corpuscular Hemoglobin Concent 35, Red Cell Distribution Width 12.7, Platelet Count 373, Mean Platelet Volume 9.5, Immature Granulocyte % (Auto) 0, Neutrophils (%) (Auto) 79, Lymphocytes (%) (Auto) 7, Monocytes (%) (Auto) 13, Eosinophils (%) (Auto) 1, Basophils (%) (Auto) 0, Neutrophils # (Auto) 11.1, Lymphocytes # (Auto) 1.0, Monocytes # (Auto) 1.8, Eosinophils # (Auto) 0.1, Basophils # (Auto) 0.1, Immature Granulocyte # (Auto) 0.1, Sodium Level 142, Potassium Level 3.7, Chloride Level 110, Carbon Dioxide Level 19, Anion Gap 13, Blood Urea Nitrogen 11, Creatinine 0.68, Estimat Glomerular Filtration Rate 102, BUN/Creatinine Rat io 16, Glucose Level 93, Calcium Level 8.5, Corrected Calcium 8.9, Total Bilirubin 3.2, Aspartate Amino Transf (AST/SGOT) 41, Alanine Aminotransferase (ALT/SGPT) 39, Alkaline Phosphatase 60, Total Protein 6.4, Albumin 3.5 09/24/21 05:31: White Blood Count 10.4, Red Blood Count 3.92, Hemoglobin 11.9, Hematocrit 33, Mean Corpuscular Volume 85, Mean Corpuscular Hemoglobin 30, Mean Corpuscular Hemoglobin Concent 36, Red Cell Distribution Width 12.9, Platelet Count 399, Mean Platelet Volume 10.3, Immature Granulocyte % (Auto) 0, Neutrophils (%) (Auto) 77, Lymphocytes (%) (Auto) 9, Monocytes (%) (Auto) 12, Eosinophils (%) (Auto) 1, Basophils (%) (Auto) 1, Neutrophils # (Auto) 8.0, Lymphocytes # (Auto) 0.9, Monocytes # (Auto) 1.2, Eosinophils # (Auto) 0.1, Basophils # (Auto) 0.1, Immature Granulocyte # (Auto) 0.0, Sodium Level 138, Potassium Level 3.6, Chloride Level 107, Carbon Dioxide Level 22, Anion Gap 9, Blood Urea Nitrogen 8, Creatinine 0.62, Estimat Glomerular Filtration Rate 104, BUN/Creatinine Ratio 13, Glucose Level 88, Calcium Level 8.2, Corrected Calcium 8.8, Total Bilirubin 1.4, Aspartate Amino Transf (AST/SGOT) 41, Alanine Aminotransferase (ALT/SGPT) 43, Alkaline Phosphatase 68, Total Protein 6.0, Albumin 3.3 Discharge Home Medications: Active Scripts Active Cefdinir 300 Mg Capsule 300 Mg PO BID Reported Tylenol Extra Strength (Acetaminophen) 500 Mg Tablet 500 Mg PO Q8H PRN Eliquis (Apixaban) 2.5 Mg Tablet 2.5 Mg PO BID Levothyroxine Sodium 50 Mcg Tablet 50 Mcg PO DAILY Instructions to patient/family Please see electronic discharge instructions given to patient. Diagnosis/Problems Diagnosis/Problems (1) Sepsis Status: Acute Qualifiers: Qualified Codes: A41.51 - Sepsis due to Escherichia coli [e. 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
[2021-09-24] MEDS ORDERED: cefTRIAXone 1 GM PRE-MIX 50 ML IV NR (10:49)
[2021-09-24 11:48] VITALS: BP 173/96
[2021-09-24 12:15] VITALS: BP 173/96
== END 2021-09-24 12:15 | disposition home or self-care (01) | DRG 871 ==
LOC: EDUNIT# 19:27 → ER 19:29 → 4TH 21:21
PROVIDERS: ADMIT Internal Medicine; ATTEND Internal Medicine
DX: A41.9 Sepsis, unspecified organism (principal); K55.069 Acute infarction of intestine, part and extent unspecified; N12 Tubulo-interstitial nephritis, not specified as acute or chronic; N39.0 Urinary tract infection, site not specified; E86.0 Dehydration; D72.829 Elevated white blood cell count, unspecified; E03.9 Hypothyroidism, unspecified; F32.A Depression, unspecified; Z20.822 Contact with and (suspected) exposure to COVID-19; B96.20 Unspecified Escherichia coli [E. coli] as the cause of diseases classified elsewhere; Z86.718 Personal history of other venous thrombosis and embolism; G43.909 Migraine, unspecified, not intractable, without status migrainosus; Z90.81 Acquired absence of spleen; Z79.01 Long term (current) use of anticoagulants
CPT/HCPCS: 36415; 71045; 80053; 81000; 82150; 83605; 83615; 83690; 83735; 84145; 85007; 85025; 85027; 85379; 85610; 85652; 85730; 86141; 87040; 87077; 87088; 87186; 87636; 93041

== ENCOUNTER → 2022-06-03 | Outpatient (CLI) | payer OTHER ==
[~2022-06-03] MED LIST changes: +ACET-2267 PO; +APIX2.5T PO; +CEFD300C3 PO
--- NOTE | 2022-06-03 16:43 | Diagnostic Imaging Report ---
3D bilateral screening mammogram with CAD. This study was compared to the prior exams of 05/27/2021, 04/11/2020 and 02/15/2019. There are no current complaints. The fibroglandular tissue in both breasts is heterogeneously dense. This does limit the sensitivity of this exam. The previous study did suggest benign-appearing cysts in the upper-outer quadrant of the left breast. On of those cysts has apparently resolved. The other cysts seem stable. The appearance of the breast itself has not changed adversely. There is no primary or secondary sign of malignancy. IMPRESSION: 1. There is no evidence of malignancy. ACR BI-RADS Category 1: Negative. Result letter will be mailed to the patient. Note: At least 10% of breast cancer is not imaged by mammography. Dictated by: Dictated on workstation # [id number]
== END ==
LOC: RAD 08:26
PROVIDERS: ATTEND Internal Medicine
DX: Z12.31 Encounter for screening mammogram for malignant neoplasm of breast (principal)
CPT/HCPCS: 77063; 77067

== ENCOUNTER 2022-07-01 09:38 | Emergency (ER) | payer OTHER ==
[2022-07-01] MEDS ORDERED: ACETAMINOPHEN 500 MG TAB (TYLENOL) PO ONE (11:00)
--- NOTE | 2022-07-01 11:27 | ED Cough/URI ---
General Chief Complaint: Cough/Cold/Flu Symptoms Stated Complaint: COUGH | SORE THROAT | NASAL CONGESTION Nursing Triage Note: PT AMB TO RM 4 WITH SPOUSE WITH C/O COUGH, SORE THROAT, ARELLANO STARTING THURSDAY. PT UNABLE TO SEE PCP YESTERDAY OR TODAY Source: patient Exam Limitations: no limitations History of Present Illness Date Seen by Provider: Jul 01, 2022 Time Seen by Provider: 11:22 Initial Comments Patient is a 57-year-old female presents ED with flulike symptoms. Symptoms started on Thursday with nasal congestion, sinus pressure, cough, headache. She states symptoms became worse Thursday. Started having bodyaches fatigue low-grade temperature. She felt nauseous without vomiting or diarrhea. She does report a cough but denies feeling short of breath or current chest pain. She states most of her symptoms appear to be in her sinuses. She has been taken Tylenol. Last dose was yesterday. She is up-to-date on her COVID vaccines. She has had COVID in the past. She denies history of coronary artery disease, COPD. History of DVT 5 years ago was placed on Eliquis daily at 2.5 mg twice daily. Denies of any leg swelling, shortness of breath, Remington pain vomiting, diarrhea, dizziness, visual changes. Allergies and Home Medications Allergies Coded Allergies: No Known Drug Allergies (Unverified , 05/18/12) Patient Home Medication List Home Medication List Reviewed: Yes Acetaminophen (Tylenol Extra Strength) 500 Mg Tablet, 500 MG PO Q8H PRN for HEADACHE, (Reported) Entered as Reported by: BRIGITTE VANCE on 09/23/21 1420 Apixaban (Eliquis) 2.5 Mg Tablet, 2.5 MG PO BID, (Reported) Entered as Reported by: BRIGITTE VANCE on 09/23/21 1419 Cefdinir (Cefdinir) 300 Mg Capsule, 300 MG PO BID Prescribed by: TRA ALLEN on 09/24/21 1021 Levothyroxine Sodium (Levothyroxine Sodium) 50 Mcg Tablet, 50 MCG PO DAILY, (Reported) Entered as Reported by: SOPHIA DISLA on 10/08/17 1618 Nirmatrelvir/Ritonavir (Paxlovid 150-100 mg Pack (Eua)) 150 Mg-100 Mg Tablet, 1 EACH PO BID Prescribed by: QUINTIN COLLINS on 07/01/22 1131 Review of Systems Review of Systems Constitutional: chills, fever, malaise, weakness EENTM: nose congestion; No hearing loss, No blurred vision, No double vision, No mouth pain, No mouth swelling, No throat pain Respiratory: cough; No short of breath Cardiovascular: No chest pain Gastrointestinal: No abdominal pain, No diarrhea; nausea; No vomiting Genitourinary: No decreased output, No discharge Musculoskeletal: No back pain, No gout Skin: No change in color, No change in hair/nails All Other Systems Reviewed Negative Unless Noted: Yes Past [id number] Hx Patient Social History Tobacco Use?: No Use of E-Cig and/or Vaping dev: No Substance use?: No Alcohol Use?: No Pt feels they are or have been: No Immunizations Up To Date Tetanus Booster (TDap): Unknown Influenza Vaccine Up-to-Date: Yes; Up-to-Date First/Initial COVID19 Vaccinat: yes Second COVID19 Vaccination Ferny: yes Third COVID19 Vaccination Date: yes Seasonal Allergies Seasonal Allergies: No Past Medical History Surgery/Hospitalization HX: spleenectomy, cholecystectomy arellano, hypothryoidism, clotting d/o Surgeries: Yes (SPLEENECTOMY) Abdominal, Gallbladder Respiratory: No Cardiac: Yes (portal vein thrombosis) Deep Vein Thrombosis, Hypertension Neurological: Yes (HX:MIGRAINES) Headaches /Migraines Reproductive Disorders: No DOBIE MAN History: Menopausal Genitourinary: No Gastrointestinal: No Musculoskeletal: No Endocrine: Yes Hypothyroidsim HEENT: No Cancer: No Psychosocial: No Integumentary: No Blood Disorders: Yes (portal vein thrombosis, anticoagulated, SPHEROCYTOSIS;FACTOR 5 LEIDEN) Adverse Reaction/Blood Tranf: No Family Medical History No Pertinent Family Hx PAST SURGICAL HISTORY: -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 -CHOLECYSTECTOMY Physical Exam Vital Signs - First Documented 07/01/22 10:05 Temp 36.8 Pulse 87 Resp 18 B/P (MAP) 181/109 (133) Capillary Refill : Height: 5'6.00" Weight: 226lbs. 8.0oz. 102.957496tg; 34.54 BMI Method:Stated General Appearance: WD/WN, no apparent distress Eyes: Bilateral Eye Normal Inspection, Bilateral Eye PERRL, Bilateral Eye EOMI HEENT: PERRL/EOMI, normal ENT inspection, TMs normal, pharynx normal Neck: non-tender, full range of motion, supple, normal inspection Respiratory: chest non-tender, lungs clear, normal breath sounds, no respiratory distress, no accessory muscle use Cardiovascular: regular rate, rhythm, no edema, no gallop, no JVD Gastrointestinal: normal bowel sounds, non tender, soft, no organomegaly Extremities: normal range of motion, non-tender, normal inspection, no pedal edema 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, no motor/sensory deficits, alert, normal mood/affect, oriented x 3 Skin: normal color, warm/dry Progress/Results/Core Measures Suspected Sepsis SIRS Temperature: Pulse: 87 Respiratory Rate: 18 Blood Pressure 181 /109 Mean: 133 Results/Orders Lab Results Laboratory Tests Test 07/01/22 10:19 Range/Units Influenza Type A (RT-PCR) Not Detected Not Detecte Influenza Type B (RT-PCR) Not Detected Not Detecte SARS-CoV-2 RNA (RT-PCR) Detected H Not Detecte Medications Given in ED Current Medications Medications Dose Ordered Sig/Smooth Route Start Time Stop Time Status Last Admin Dose Admin Acetaminophen 1,000 mg ONCE ONCE PO 07/01/22 11:00 07/01/22 11:01 DC 07/01/22 11:07 1,000 MG Vital Signs/I&O 07/01/22 07/01/22 10:05 11:45 Temp 36.8 36.8 Pulse 87 84 Resp 18 18 B/P (MAP) 181/109 (133) 198/100 Capillary Refill : Blood Pressure Mean: 133 Departure Communication (PCP) Patient presents ED with flulike symptoms. Symptoms started on Thursday. Worsening symptoms yesterday and throughout this morning. Patient reports mild cough but denies of any chest pain or shortness of breath. Most of her complaint is more head congestion, sinuses pressure. She has had no vomiting or diarrhea. No abdominal tenderness. No history of coronary artery disease, COPD, diabetes, known hypertension. She was hypertensive on arrival and not currently on blood pressure medication. She saw her primary care physician last week Dr. Allen and states no medication was started as there wasno concern. Reviewed previous ER visits, H&P's, and elevated blood pressure readings. Blood pressure reading improved to 161/103 without any medication here. Did increase 198/108 before discharge. Discussed starting medication and/or giving a IM injection here. She would rather follow-up with Dr. Allen. Discussed that hypertension can lead to cardiomyopathy, coronary artery disease, stroke. She acknowledges. Could be elevated from just from not feeling well. She says she is eating and drinking at home. No IV at this time. Due to her current complaint COVID and influenza was ordered. COVID-positive. She was given Tylenol. Discussed IV fluids, lab work. She would rather wait. Her lung sounds are clear bilateral. No evidence suggesting pneumonia. Tylenol helped with her headache. Patient without any significant core morbidities. Discussed conservative treatment at this time. She was requesting other options such as antiviral. Since patient is on Eliquis and potential low possibly of interac tion, it is recommended to stay with a lower dose during duration of the Paxlovid. She agrees to proceed with the medication. Discussed potential side effects, nausea, vomiting, abdominal pain, feeling unwell, increased blood pressure, diarrhea. She acknowledged. Paxlovid is not FDA approved. She is up-to-date on her COVID vaccines. Do not feel that patient meets inpatient cr iteria. She does not appear toxic. She is not hypoxic. Recommend isolation for 5 days starting symptoms. If asymptomatic and afebrile may return with a mask for additional 5 days. Continue wear mask up to 10 days. She states she will contact her primary care physician regarding her blood pressure. Recommend importance of hydration, electrolytes. Avoid Sudafed as this may increase blood pressure. Continue with Tylenol at home. Impression Primary Impression: COVID-19 Additional Impression: Elevated blood pressure reading Disposition: HOME, SELF-CARE Condition: Stable Departure-Patient Inst. Decision time for Depature: 11:22 Referrals: TRA ALLEN DO (PCP/Family) Primary Care Physician Patient Instructions: COVID-19 Vaccines Scripts Nirmatrelvir/Ritonavir (Paxlovid 150-100 mg Pack (Eua)) 150 Mg-100 Mg Tablet 1 EACH PO BID for 5 Days, #10 TAB Prov: KATIE MAHAJAN 07/01/22 KATIE MAHAJAN Jul 01, 2022 11:27
[2022-07-01] MEDS ORDERED: NIRM1TAB5 PO (11:31)
[2022-07-01 11:45] VITALS: BP 198/100
== END 2022-07-01 11:48 | disposition home or self-care (01) ==
LOC: EDUNIT# 09:38 → ER 09:40
DX: U07.1 COVID-19 (principal); R09.81 Nasal congestion; R51.9 Headache, unspecified; R05.9 Cough, unspecified; I10 Essential (primary) hypertension; I82.409 Acute embolism and thrombosis of unspecified deep veins of unspecified lower extremity; Z79.02 Long term (current) use of antithrombotics/antiplatelets; Z86.16 Personal history of COVID-19
CPT/HCPCS: 87636; 99283